=== PATIENT | female | born 1940 | race Caucasian/White ===

== ENCOUNTER 2017-09-26 13:45 | Inpatient (IN) | payer OTHER ==
[2017-09-26] MEDS ORDERED: Sodium Chloride 0.9% 10 ML Syringe FLUSH PRN (14:24)
[2017-09-26] MEDS ORDERED: Sodium Chloride 0.9% 1,000 ML IV SCH (14:30)
[2017-09-26 14:59] LABS: ACETAMINOPHEN 0 ug/mL (10-30)
--- NOTE | 2017-09-26 15:06 | EDM.PDOCBH ---
ED HPI GENERAL MEDICAL PROBLEM - General Chief Complaint: Drug or Alcohol Abuse Stated Complaint: [facility] Time Seen by Provider: 09/26/17 13:52 Source of Information: Reports: Patient, Family History Limitations: Reports: No Limitations - History of Present Illness INITIAL COMMENTS - FREE TEXT/NARRATIVE: Patient is a 76-year-old female who presents to the ED via ambulance after attempting to killing herself. Patient states she took 90 mg of hydrocodone at 7 :00 this morning. She took another 24 mg of hydrocodone at 1:00 this afternoon. She wants to end her life. She wants to be with Tino her Savior. Patient admits to doing some research on the Internet on how to kill herself and how much hydrocodone to take. She states 90 mg was the suggested dose to be lethal. Since this did not work patient opted to take four more tabs at 1 pm this afternoon. She has attempted to kill herself in the past requiring inpatient mental health evaluation. The pills she took were hydrocodone/ibuprofen 7.5 mg/ 200 mg. Patient has a history of hemochromatosis and hypothyroidism. Only medication she is currently on is levothyroxine. Otherwise she is on a multitude of supplements for various conditions. Surgical history: Cholecystectomy. Patient reports she does not smoke, utilize alcohol, or recreational drugs Patient received 84 tabs of hydrocodone 7.5 mg/200 mg of ibuprofen on September 20, 2017. Patient normally takes half tab 6 times a day. Thus over the past 18 days patient should have only used 18 tabs. Patient only has 27 tabs left. Patient has taken an extra 39 tabs. - Related Data Allergies Allergy/AdvReac Type Severity Reaction Status Date / Time No Known Allergies Allergy Verified 09/26/17 13:53 Home Meds: Home Meds Amino Acids [Amino Acid] 1 each PO DAILY 09/26/17 [History] Ascorbic Acid [C-1000] 1,000 mg PO DAILY 09/26/17 [History] Calcium Carbonate/Vitamin D3 [Calcium Carbonate/Vitamin D 1250 MG-200 Unit] 1 tab PO BIDMEALS 09/26/17 [History] Cholecalciferol (Vitamin D3) [Vitamin D3] 10,000 unit PO DAILY 09/26/17 [History ] Digestive 8/L.acidoph/Pectin [Digestive Enzymes Tablet] 1 each PO DAILY [History] [place] 150 mg PO DAILY 09/26/17 [History] Levothyroxine Sodium [Synthroid] 100 mcg PO ACBREAKFAST 09/26/17 [History] Magnesium 200 mg PO DAILY 09/26/17 [History] Milk Thistle 1 gm MC DAILY 09/26/17 [History] Polyvinyl Alcohol/Povidone/Pf [Refresh Classic Eye Drops] 1 drop DAILY 09/26/17 [History] Potassium Citrate [Potassium Citrate ER] 5 meq PO DAILY 09/26/17 [History] Selenium 200 mcg PO DAILY 09/26/17 [History] Vit A/Vit C/Vit E/Zinc/Copper [Preservision] 1 each PO DAILY 09/26/17 [History] Vitamin B Complex [B Complex] 1 each PO DAILY 09/26/17 [History] Vitamin E Acetate [Vitamin E] 200 unit PO DAILY 09/26/17 [History] Zinc 22.5 mg PO DAILY 09/26/17 [History] Past Medical History HEENT History: Reports: Hard of Hearing, Impaired 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: Musculoskeletal History: Reports: Osteoarthritis Endocrine/Metabolic History: Reports: Hypothyroidism Oncologic (Cancer) History: Reports: Breast, Other (See Below) Other Oncologic History: left breast cancer--pt states that this is self diagnosed - Infectious Disease History Infectious Disease History: Reports: Chicken Pox, Measles, Mumps - Past Surgical History GI Surgical History: Reports: Cholecystectomy Female Surgical History: Reports: Hysterectomy, Oophorectomy Social & Family History - Tobacco Use Smoking Status *Q: Never Smoker - Caffeine Use Caffeine Use: Reports: None - Recreational Drug Use Recreational Drug Use: No ED ROS GENERAL - Review of Systems Review Of Systems: See Below HEENT: Reports: Other (Dry eyes) Respiratory: Denies: Shortness of Breath, Wheezing, Cough, Sputum Cardiovascular: Denies: Chest Pain, Dyspnea on Exertion, Palpitations GI/Abdominal: Reports: Diarrhea (Intermittent). Denies: Abdominal Pain, Constipation, Nausea, Vomiting : Reports: No Symptoms Musculoskeletal: Reports: No Symptoms Neurological: Reports: No Symptoms Psychiatric: Denies: Hallucinations, Homicidal Ideation, Suicidal Ideation ED EXAM, BEHAVIORAL HEALTH - Physical Exam Exam: See Below Exam Limited By: No Limitations General Appearance: Alert, WD/WN, No Apparent Distress Ears: Hearing Grossly Normal Nose: Normal Inspection Throat/Mouth: Normal Voice, No Airway Compromise Neck: Normal Inspection, Supple Respiratory/Chest: No Respiratory Distress, Lungs Clear, Normal Breath Sounds, No Accessory Muscle Use, Chest Non-Tender Cardiovascular: Normal Peripheral Pulses, Regular Rate, Rhythm GI/Abdominal: Normal Bowel Sounds, Soft, Non-Tender, No Organomegaly, No Distention Back Exam: Normal Inspection Extremities: Normal Inspection Neurological: Alert, Normal Mood/Affect, CN II-XII Intact, Normal Cognition, No Motor/Sensory Deficits, Oriented x 3 Psychiatric: Alert, Normal Affect, Normal Cognition, Normal Mood, Oriented Skin Exam: Warm, Dry, Intact, Normal color COURSE, BEHAVIORAL HEALTH COMP - Course Vital Signs: Last Vital Signs Temp 97.6 F 09/26/17 22:16 Pulse 60 09/26/17 22:16 Resp 16 09/26/17 22:16 BP 140/87 09/26/17 22:16 Pulse Ox 97 09/26/17 22:16 Orders, Labs, Meds: Active Orders 24 hr Category Date Time Status Admission Status [Patient Status] [ADT] Routine ADT 09/26/17 21:15 Ordered Antiembolic Devices [RC] PER UNIT ROUTINE Care 09/26/17 21:12 Active Cardiac Monitoring [RC] . DIRECTED Care 09/26/17 22:52 Ordered Cardiac Monitoring [RC] . DIRECTED Care 09/26/17 22:55 Ordered Cardiac Monitoring [RC] CONTINUOUS Care 09/26/17 21:11 Active Height and Weight [RC] DAILY Care 09/26/17 21:10 Active Intake and Output [RC] QSHIFT Care 09/26/17 21:11 Active Oxygen Therapy [RC] PRN Care 09/26/17 21:10 Active Peripheral IV Care [RC] . DIRECTED Care 09/26/17 14:25 Active RT Aerosol Therapy [RC] ASDIRECTED Care 09/26/17 21:12 Active Up With Assistance [RC] ASDIRECTED Care 09/26/17 21:10 Active Up ad Nova [RC] ASDIRECTED Care 09/26/17 21:10 Active VTE/DVT Education [RC] PER UNIT ROUTINE Care 09/26/17 21:10 Active Vital Signs [RC] Q4H Care 09/26/17 21:10 Active Consult to Case Management [CONS] Routine Cons 09/26/17 21:10 Active Consult to Tablet Making Machine Operator [CONS] Routine Cons 09/26/17 21:10 Active Consult to Spiritual Care [CONS] Routine Cons 09/26/17 21:10 Active Regular Diet [DIET] Diet 09/26/17 Dinner Active BASIC METABOLIC PANEL,BMP [CHEM] AM Lab 09/27/17 05:11 Ordered CBC WITH AUTO DIFF [HEME] AM Lab 09/27/17 05:11 Ordered MAGNESIUM [CHEM] AM Lab 09/27/17 05:11 Ordered Acetaminophen [Tylenol] Med 09/26/17 21:10 Active 650 mg PO Q4H PRN Acetaminophen/HYDROcodone [[place] 325-5 MG] Med 09/26/17 21:10 Active 1 tab PO Q4H PRN Albuterol/Ipratropium [DuoNeb 3.0-0.5 MG/3 ML] Med 09/26/17 21:10 Active 3 ml NEB Q4H PRN Bisacodyl [Dulcolax] Med 09/26/17 21:10 Active 5 mg PO DAILY PRN Docusate Sodium [Colace] Med 09/26/17 21:10 Active 100 mg PO BID PRN Docusate Sodium/Sennosides [Senna Plus] Med 09/26/17 21:10 Active 1 tab PO BID PRN HYDROmorphone [Dilaudid] Med 09/26/17 21:10 Active 0.25 mg IVPUSH Q2H PRN LORazepam [Ativan] Med 09/26/17 21:13 Active 0.5 mg IVPUSH Q4H PRN LORazepam [Ativan] Med 09/26/17 21:13 Active 2 mg IVPUSH Q4H PRN Magnesium Rep Pharmacy to Dose [Pharmacy to Dose - Med 09/26/17 21:15 Pending Magnesium Replacement] 1 dose .XX ASDIRECTED Metoprolol Tartrate [Lopressor] Med 09/26/17 21:13 Active 5 mg IVPUSH Q4H PRN Ondansetron [Zofran] Med 09/26/17 21:10 Active 4 mg IV Q6H PRN Pantoprazole [ProTONIX IV] Med 09/26/17 21:10 Pending 40 mg .XX ONETIME ONE Pantoprazole [ProTONIX IV] Med 09/26/17 22:55 Once 40 mg IVPUSH ONETIME ONE Polyethylene Glycol 3350 [MiraLAX] Med 09/26/17 21:10 Active 17 gm PO DAILY PRN Potassium Rep Pharmacy to Dose [Pharmacy to Dose - Med 09/26/17 21:15 Pending Potassium Replacement] 1 dose .XX ASDIRECTED Promethazine [Phenergan] 12.5 mg Med 09/26/17 21:10 Active Sodium Chloride 0.9% [Normal Saline] 50 ml IV Q6H Sodium Chloride 0.9% [Normal Saline] 1,000 ml Med 09/26/17 14:30 Active IV ASDIRECTED Sodium Chloride 0.9% [Saline Flush] Med 09/26/17 14:24 Active 10 ml FLUSH ASDIRECTED PRN Temazepam [Restoril] Med 09/26/17 21:10 Active 7.5 mg PO BEDTIME PRN hydrALAZINE [Apresoline] Med 09/26/17 21:13 Active 10 mg IVPUSH Q4H PRN Peripheral IV Insertion Adult [OM.PC] Stat Oth 09/26/17 14:25 Ordered Sequential Compression Device [OM.PC] Per Unit Routine Oth 09/26/17 21:11 Ordered Resuscitation Status Routine Resus Stat 09/26/17 21:10 Ordered Medication Orders Acetaminophen (Tylenol) 650 mg PO Q4H PRN PRN Reason: Pain (Mild 1-3)/fever Hydrocodone Bitart/Acetaminophen ([place] 325-5 Mg) 1 tab PO Q4H PRN PRN Reason: Pain (moderate 4-6) Albuterol/Ipratropium (Duoneb 3.0-0.5 Mg/3 Ml) 3 ml NEB Q4H PRN PRN Reason: Shortness Of Breath/wheezing Bisacodyl (Dulcolax) 5 mg PO DAILY PRN PRN Reason: Constipation Docusate Sodium (Colace) 100 mg PO BID PRN PRN Reason: Constipation Hydralazine HCl (Apresoline) 10 mg IVPUSH Q4H PRN PRN Reason: Hypertension Hydromorphone HCl (Dilaudid) 0.25 mg IVPUSH Q2H PRN PRN Reason: Pain (severe 7-10) Sodium Chloride (Normal Saline) 1,000 mls @ 100 mls/hr IV ASDIRECTED ALEKSANDAR Last Admin: 09/26/17 15:08 Dose: 250 mls/hr Promethazine HCl 12.5 mg/ (Sodium Chloride) 50.5 mls @ 100 mls/hr IV Q6H PRN PRN Reason: Nausea/Vomiting Lorazepam (Ativan) 2 mg IVPUSH Q4H PRN PRN Reason: Seizures Lorazepam (Ativan) 0.5 mg IVPUSH Q4H PRN PRN Reason: Anxiety Magnesium Sulfate (Pharmacy To Dose - Magnesium Replacement) 1 dose .XX ASDIRECTED [facility] Metoprolol Tartrate (Lopressor) 5 mg IVPUSH Q4H PRN PRN Reason: Tachycardia Ondansetron HCl (Zofran) 4 mg IV Q6H PRN PRN Reason: Nausea/Vomiting Pantoprazole Sodium (Protonix Iv) 40 mg .XX ONETIME ONE Stop: 09/26/17 21:11 Pantoprazole Sodium (Protonix Iv) 40 mg IVPUSH ONETIME ONE Stop: 09/26/17 22:56 Polyethylene Glycol (Miralax) 17 gm PO DAILY PRN PRN Reason: Constipation Potassium Chloride (Pharmacy To Dose - Potassium Replacement) 1 dose .XX ASDIRECTED [facility] Senna/Docusate Sodium (Senna Plus) 1 tab PO BID PRN PRN Reason: Constipation Sodium Chloride (Saline Flush) 10 ml FLUSH ASDIRECTED PRN PRN Reason: Keep Vein Open Last Admin: 09/26/17 15:09 Dose: 10 ml Temazepam (Restoril) 7.5 mg PO BEDTIME PRN PRN Reason: Sleep Laboratory Tests 09/26/17 09/26/17 09/26/17 Range/Units 13:50 13:50 13:50 WBC 7.10 (3.98-10.04) K/mm3 RBC 4.79 (3.98-5.22) M/mm3 Hgb 15.6 (11.2-15.7) gm/L Hct 45.5 H (34.1-44.9) % MCV 95.0 H (79.4-94.8) fl MCH 32.6 H (25.6-32.2) pg MCHC 34.3 (32.2-35.5) g/dl RDW Std Deviation 40.6 (36.4-46.3) fL Plt Count 143 L (182-369) K/mm3 MPV 10.5 (9.4-12.3) fl Neut % (Auto) 56.6 (34.0-71.1) % Lymph % (Auto) 33.8 (19.3-51.7) % [place] % (Auto) 7.9 (4.7-12.5) % Eos % (Auto) 1.3 (0.7-5.8) Baso % (Auto) 0.3 (0.1-1.2) % Neut # (Auto) 4.02 (1.56-6.13) K/mm3 Lymph # (Auto) 2.40 (1.18-3.74) K/mm3 [place] # (Auto) 0.56 H (0.24-0.36) K/mm3 Eos # (Auto) 0.09 (0.04-0.36) K/mm3 Baso # (Auto) 0.02 (0.01-0.08) K/mm3 PT 9.8 (8.0-13.0) SECONDS INR 0.90 Sodium 142 (136-145) mEq/L Potassium 3.9 (3.5-5.1) mEq/L Chloride 105 (98-107) mEq/L Carbon Dioxide 26 (21-32) mEq/L Anion Gap 14.9 (5-15) BUN 18 (7-18) mg/dL Creatinine 0.8 (0.55-1.02) mg/dL Est Cr Clr Drug Dosing 51.66 mL/min Estimated GFR (MDRD) > 60 (>60) mL/min BUN/Creatinine Ratio 22.5 H (14-18) Glucose 101 (83-115) mg/dL Calcium 10.0 (8.5-10.1) mg/dL Total Bilirubin 0.3 (0.2-1.0) mg/dL AST 29 (15-37) U/L ALT 37 (14-59) U/L Alkaline Phosphatase 49 (46-116) U/L Total Protein 7.6 (6.4-8.2) g/dl Albumin 4.0 (3.4-5.0) g/dl Globulin 3.6 gm/dL Albumin/Globulin Ratio 1.1 (1-2) TSH 3rd Generation 12.263 H (0.358-3.74) uIU/mL Urine Color (Yellow) Urine Appearance (Clear) Urine pH (5.0-8.0) Ur Specific [place] (1.005-1.030) Urine Protein (Negative) Urine Glucose (UA) (Negative) Urine Ketones (Negative) Urine Occult Blood (Negative) Urine Nitrite (Negative) Urine Bilirubin (Negative) Urine Urobilinogen (0.2-1.0) Ur Leukocyte Esterase (Negative) Urine RBC (0-5) /hpf Urine WBC (0-5) /hpf Ur Epithelial Cells (0-5) /hpf Urine Bacteria (FEW) /hpf Urine Mucus (FEW) /hpf Salicylates (2.8-20) mg/dL Urine Opiates Screen (NEGATIVE) Ur Buprenorphine Scrn (NEGATIVE) Ur Oxycodone Screen (NEGATIVE) Urine Methadone Screen (NEGATIVE) Ur Propoxyphene Screen (NEGATIVE) Acetaminophen 0 L (10-30) ug/mL Ur Barbiturates Screen (NEGATIVE) Ur Tricyclics Screen (NEGATIVE) Ur Phencyclidine Scrn (NEGATIVE) Ur Amphetamine Screen (NEGATIVE) U Methamphetamines Scrn (NEGATIVE) U Benzodiazepines Scrn (NEGATIVE) U Cocaine Metab Screen (NEGATIVE) U Marijuana (THC) Screen (NEGATIVE) Ethyl Alcohol 0.00 (0.00) gm% 09/26/17 09/26/17 09/26/17 Range/Units 13:50 14:48 14:48 WBC (3.98-10.04) K/mm3 RBC (3.98-5.22) M/mm3 Hgb (11.2-15.7) gm/L Hct (34.1-44.9) % MCV (79.4-94.8) fl MCH (25.6-32.2) pg MCHC (32.2-35.5) g/dl RDW Std Deviation (36.4-46.3) fL Plt Count (182-369) K/mm3 MPV (9.4-12.3) fl Neut % (Auto) (34.0-71.1) % Lymph % (Auto) (19.3-51.7) % [place] % (Auto) (4.7-12.5) % Eos % (Auto) (0.7-5.8) Baso % (Auto) (0.1-1.2) % Neut # (Auto) (1.56-6.13) K/mm3 Lymph # (Auto) (1.18-3.74) K/mm3 [place] # (Auto) (0.24-0.36) K/mm3 Eos # (Auto) (0.04-0.36) K/mm3 Baso # (Auto) (0.01-0.08) K/mm3 PT (8.0-13.0) SECONDS INR Sodium (136-145) mEq/L Potassium (3.5-5.1) mEq/L Chloride (98-107) mEq/L Carbon Dioxide (21-32) mEq/L Anion Gap (5-15) BUN (7-18) mg/dL Creatinine (0.55-1.02) mg/dL Est Cr Clr Drug Dosing mL/min Estimated GFR (MDRD) (>60) mL/min BUN/Creatinine Ratio (14-18) Glucose (83-115) mg/dL Calcium (8.5-10.1) mg/dL Total Bilirubin (0.2-1.0) mg/dL AST (15-37) U/L ALT (14-59) U/L Alkaline Phosphatase (46-116) U/L Total Protein (6.4-8.2) g/dl Albumin (3.4-5.0) g/dl Globulin gm/dL Albumin/Globulin Ratio (1-2) TSH 3rd Generation (0.358-3.74) uIU/mL Urine Color Yellow (Yellow) Urine Appearance Clear (Clear) Urine pH 6.5 (5.0-8.0) Ur Specific [place] 1.015 (1.005-1.030) Urine Protein Negative (Negative) Urine Glucose (UA) Negative (Negative) Urine Ketones Negative (Negative) Urine Occult Blood Negative (Negative) Urine Nitrite Negative (Negative) Urine Bilirubin Negative (Negative) Urine Urobilinogen 0.2 (0.2-1.0) Ur Leukocyte Esterase Trace H (Negative) Urine RBC 0-5 (0-5) /hpf Urine WBC 0-5 (0-5) /hpf Ur Epithelial Cells 0-5 (0-5) /hpf Urine Bacteria Not seen (FEW) /hpf Urine Mucus Not seen (FEW) /hpf Salicylates 1.6 L (2.8-20) mg/dL Urine Opiates Screen Presumptive positive H (NEGATIVE) Ur Buprenorphine Scrn Negative (NEGATIVE) Ur Oxycodone Screen Negative (NEGATIVE) Urine Methadone Screen Negative (NEGATIVE) Ur Propoxyphene Screen Negative (NEGATIVE) Acetaminophen (10-30) ug/mL Ur Barbiturates Screen Negative (NEGATIVE) Ur Tricyclics Screen Negative (NEGATIVE) Ur Phencyclidine Scrn Negative (NEGATIVE) Ur Amphetamine Screen Negative (NEGATIVE) U Methamphetamines Scrn Negative (NEGATIVE) U Benzodiazepines Scrn Negative (NEGATIVE) U Cocaine Metab Screen Negative (NEGATIVE) U Marijuana (THC) Screen Negative (NEGATIVE) Ethyl Alcohol (0.00) gm% Medications Generic Name Dose Route Start Last Admin Trade Name Freq PRN Reason Stop Dose Admin Acetaminophen 650 mg 09/26/17 21:10 Tylenol PO Q4H PRN Pain (Mild 1-3)/fever Hydrocodone Bitart/Acetaminophen 1 tab 09/26/17 21:10 [place] 325-5 Mg PO Q4H PRN Pain (moderate 4-6) Albuterol/Ipratropium 3 ml 09/26/17 21:10 Duoneb 3.0-0.5 Mg/3 Ml NEB Q4H PRN Shortness Of Breath/wheezing Bisacodyl 5 mg 09/26/17 21:10 Dulcolax PO DAILY PRN Constipation Docusate Sodium 100 mg 09/26/17 21:10 Colace PO BID PRN Constipation Hydralazine HCl 10 mg 09/26/17 21:13 Apresoline IVPUSH Q4H PRN Hypertension Hydromorphone HCl 0.25 mg 09/26/17 21:10 Dilaudid IVPUSH Q2H PRN Pain (severe 7-10) Sodium Chloride 1,000 mls @ 100 mls/hr 09/26/17 14:30 09/26/17 15:08 Normal Saline IV 250 mls/hr ASDIRECTED [facility] Administration Promethazine HCl 12.5 mg/ 50.5 mls @ 100 mls/hr 09/26/17 21:10 Sodium Chloride IV Q6H PRN Nausea/Vomiting Lorazepam 2 mg 09/26/17 21:13 Ativan IVPUSH Q4H PRN Seizures Lorazepam 0.5 mg 09/26/17 21:13 Ativan IVPUSH Q4H PRN Anxiety Magnesium Sulfate 1 dose 09/26/17 21:15 Pharmacy To Dose - Magnesium Replacement .XX ASDIRECTED [facility] Metoprolol Tartrate 5 mg 09/26/17 21:13 Lopressor IVPUSH Q4H PRN Tachycardia Ondansetron HCl 4 mg 09/26/17 21:10 Zofran IV Q6H PRN Nausea/Vomiting Pantoprazole Sodium 40 mg 09/26/17 21:10 Protonix Iv .XX 09/26/17 21:11 ONETIME ONE Pantoprazole Sodium 40 mg 09/26/17 22:55 Protonix Iv IVPUSH 09/26/17 22:56 ONETIME ONE Polyethylene Glycol 17 gm 09/26/17 21:10 Miralax PO DAILY PRN Constipation Potassium Chloride 1 dose 09/26/17 21:15 Pharmacy To Dose - Potassium Replacement .XX ASDIRECTED ALEKSANDAR Senna/Docusate Sodium 1 tab 09/26/17 21:10 Senna Plus PO BID PRN Constipation Sodium Chloride 10 ml 09/26/17 14:24 09/26/17 15:09 Saline Flush FLUSH 10 ml ASDIRECTED PRN Administration Keep Vein Open Temazepam 7.5 mg 09/26/17 21:10 Restoril PO BEDTIME PRN Sleep Re-Assessment/Re-Exam: IV established with NS 250mls/hr for kidney protection with taking excessive amounts of ibuprofen. ibupro Initial labs and studies include CBC, chem 14, urine drug tox, serum EtOH, PT/ INR, salicylate, acetaminophen, TSH, UA, and EKG. EKG sinus bradycardia at a rate of 58 with no acute changes noted. Labs reviewed:CBC and C14 essentially normal. TSH: 12.263 UA: negative for infection. Urine Drug Tox: Salicylates 1.6L, Opiates positive, Acetaminophen 0, Serum ETOH 0.00. 1606 [facility] Contacted may have a Geriatric Psych Bed available in a hr. 1617 [facility] has called back no Geriatric Psych Beds available. 1622 Called [facility]so Jonas, no geriatric Psych Beds available. [address] Cavazos. Requests geriatric social work professor come evaluate the patient to determine placement. 165 Adriana calles has attempted to contact all individuals software developer consultant list with no answers. 1650 Attempting to find placement for the patient. Will look at Nirmal, Daisha, and Nicola. 1904 Amita with [facility]: [facility] has completed assessment and spoken with Dr. Steph Petersen Psych Provider. He does not feel safe having the patient transferred this evening to [place]. Request patient be admitted to the hospitalist and monitored for any changes. If stable in the morning may be transferred to [place] for psych evaluation. Contacted Dr. Cavazos and he has agreed to admit. Requests ICU admission with one on one. Patient remained stable throughout her ED visit. Vital signs have been stable. MCG completed. Admission orders placed. Departure - Departure Time of Disposition: 21:15 Disposition: Admitted As Inpatient 66 Condition: Good Clinical Impression: Elevated TSH Suicide attempt using analgesics Qualifiers: Encounter type: initial encounter Qualified Code(s): T39.92XA - Poisoning by unspecified nonopioid analgesic, antipyretic and antirheumatic, intentional self -harm, initial encounter - Discharge Information Referrals: Aleksandr Stephen MD [Primary Care Provider] - - My Orders Last 24 Hours: My Active Orders 09/26/17 14:24 Sodium Chloride 0.9% [Saline Flush] 10 ml FLUSH ASDIRECTED PRN 09/26/17 14:25 Peripheral IV Care [RC] . DIRECTED Peripheral IV Insertion Adult [OM.PC] Stat 09/26/17 14:30 Sodium Chloride 0.9% [Normal Saline] 1,000 ml IV ASDIRECTED 09/26/17 21:15 Admission Status [Patient Status] [ADT] Routine 09/26/17 22:52 Cardiac Monitoring [RC] . DIRECTED 09/26/17 22:55 Cardiac Monitoring [RC] . DIRECTED - Assessment/Plan Last 24 Hours: My Active Orders 09/26/17 14:24 Sodium Chloride 0.9% [Saline Flush] 10 ml FLUSH ASDIRECTED PRN 09/26/17 14:25 Peripheral IV Care [RC] . DIRECTED Peripheral IV Insertion Adult [OM.PC] Stat 09/26/17 14:30 Sodium Chloride 0.9% [Normal Saline] 1,000 ml IV ASDIRECTED 09/26/17 21:15 Admission Status [Patient Status] [ADT] Routine 09/26/17 22:52 Cardiac Monitoring [RC] . DIRECTED 09/26/17 22:55 Cardiac Monitoring [RC] . DIRECTED
[2017-09-26] MEDS ORDERED: HYDROmorphone 0.5 MG/0.5 ML Syringe IVPUSH PRN (21:10)
[2017-09-26] MEDS ORDERED: Docusate Sodium 100 MG Cap PO PRN (21:10)
[2017-09-26] MEDS ORDERED: Acetaminophen 325 MG Tab PO PRN (21:10)
[2017-09-26] MEDS ORDERED: Albuterol/Ipratropium 3.0-0.5 MG/3 ML Neb Soln NEB PRN (21:10)
[2017-09-26] MEDS ORDERED: Acetaminophen/HYDROcodone 325-5 MG Tab PO PRN (21:10)
[2017-09-26] MEDS ORDERED: Pantoprazole 40 MG Vial ONE (21:10)
[2017-09-26] MEDS ORDERED: Polyethylene Glycol 3350 Powder 17 GM Packet PO PRN (21:10)
[2017-09-26] MEDS ORDERED: Bisacodyl 5 MG Tab PO PRN (21:10)
[2017-09-26] MEDS ORDERED: Temazepam 7.5 MG Cap PO PRN (21:10)
[2017-09-26] MEDS ORDERED: Ondansetron 4 MG/2 ML SDV IV PRN (21:10)
[2017-09-26] MEDS ORDERED: Promethazine 12.5 MG in Sodium Chloride 0.9% 50 ML IV PRN (21:10)
[2017-09-26] MEDS ORDERED: LORazepam 2 MG/ML MDV IVPUSH PRN ×2 (21:13)
[2017-09-26] MEDS ORDERED: hydrALAZINE 20 MG/ML SDV IVPUSH PRN (21:13)
[2017-09-26] MEDS ORDERED: Metoprolol Tartrate 5 MG/5 ML SDV IVPUSH PRN (21:13)
[2017-09-26] MEDS ORDERED: Pantoprazole 40 MG Vial IVPUSH ONE (22:55)
--- NOTE | 2017-09-26 23:00 | PCM.HP ---
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 She is "tired of living". She states, "I'm poor, lonely, not able to get around and miserable". She also states that she want to get to the spiritual world to meet up with Tino. Patient is a believer of naturopathic medicine. She states that she has cured her OA, hematochromatosis, breast cancer and other things (i.e. illness). She is a divorcee, lives alone and under [employer] program. She has tried multiple online regimen to improve her overall health from DHEA to improve her hormonal insufficiency, to Calcium Gluconate for reduction of excess estrogen, ? Pancreatinin to treat her cancer cells, and Milk Thisle for pruritis from hematochromatosis. Patient denies any hx/o anxiety or depression. She has had counseling in the past was never formally diagnosed with certain psychiatric illness. Her initial workup in the emergency department shows an unremarkable CBC and coagulation study. Her chemistry is remarkable for TSH of 12.2. Her urine is negative for urinary tract infection. Patient is being admitted for observation related to suicide attempt via drug overdose. She is DNR/DNI. She has been accepted under the services of Dr. Choi , Attending Psychiatrist. She will be transferred tomorrow in [place]. - Related Data Allergies/Adverse Reactions: Allergies Allergy/AdvReac Type Severity Reaction Status Date / Time No Known Allergies Allergy Verified 09/26/17 13:53 Home Medications: Home Meds Amino Acids [Amino Acid] 1 each PO DAILY 09/26/17 [History] Ascorbic Acid [C-1000] 1,000 mg PO DAILY 09/26/17 [History] Calcium Carbonate/Vitamin D3 [Calcium Carbonate/Vitamin D 1250 MG-200 Unit] 1 tab PO BIDMEALS 09/26/17 [History] Cholecalciferol (Vitamin D3) [Vitamin D3] 10,000 unit PO DAILY 09/26/17 [History ] Digestive 8/L.acidoph/Pectin [Digestive Enzymes Tablet] 1 each PO DAILY [History] [place] 150 mg PO DAILY 09/26/17 [History] Levothyroxine Sodium [Synthroid] 100 mcg PO ACBREAKFAST 09/26/17 [History] Magnesium 200 mg PO DAILY 09/26/17 [History] Milk Thistle 1 gm MC DAILY 09/26/17 [History] Polyvinyl Alcohol/Povidone/Pf [Refresh Classic Eye Drops] 1 drop DAILY 09/26/17 [History] Potassium Citrate [Potassium Citrate ER] 5 meq PO DAILY 09/26/17 [History] Selenium 200 mcg PO DAILY 09/26/17 [History] Vit A/Vit C/Vit E/Zinc/Copper [Preservision] 1 each PO DAILY 09/26/17 [History] Vitamin B Complex [B Complex] 1 each PO DAILY 09/26/17 [History] Vitamin E Acetate [Vitamin E] 200 unit PO DAILY 09/26/17 [History] Zinc 22.5 mg PO DAILY 09/26/17 [History] Past Medical History HEENT History: Reports: Hard of Hearing, Impaired Vision Respiratory History: Reports: Asthma Gastrointestinal History: Reports: None Genitourinary History: Reports: None 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 RIDER History: Reports: , Prolapsed Uterus Musculoskeletal History: Reports: Osteoarthritis Endocrine/Metabolic History: Reports: Hypothyroidism Oncologic (Cancer) History: Reports: Breast, Other (See Below) Other Oncologic History: left breast cancer--pt states that this is self diagnosed - Infectious Disease History Infectious Disease History: Reports: Chicken Pox, Measles, Mumps - Past Surgical History HEENT Surgical History: Reports: Cataract Surgery Respiratory Surgical History: Reports: None GI Surgical History: Reports: Cholecystectomy, Colonoscopy Female Surgical History: Reports: Hysterectomy, Oophorectomy Musculoskeletal Surgical History: Reports: Other (See Below) Other Musculoskeletal Surgeries/Procedures:: left harry fx. Dermatological Surgical History: Reports: None Social & Family History - Family History Oncologic: Reports: Bone, Lymphoma, Prostate - Tobacco Use Smoking Status *Q: Never Smoker Second Hand Smoke Exposure: No - Caffeine Use Caffeine Use: Reports: None - Recreational Drug Use Recreational Drug Use: No H&P Review of Systems - Review of Systems: Review Of Systems: See Below General: Reports: Fatigue. Denies: Fever, Chills, Malaise, Weakness HEENT: Reports: No Symptoms, Other (dry eyes) Pulmonary: Reports: No Symptoms Cardiovascular: Denies: Chest Pain, Palpitations, Dyspnea on Exertion, Lightheadedness Gastrointestinal: Reports: Diarrhea (on and off). Denies: Abdominal Pain, Constipation, Nausea, Vomiting Genitourinary: Reports: No Symptoms Musculoskeletal: Reports: Other (All over from neck all the way to her lower legs bilaterally) Skin: Denies: Cyanosis, Pallor, Diaphoresis, Rash, Erythema, Wound Psychiatric: Denies: Depression, Anxiety, Agitation, Hallucinations, Suicidal Ideation Neurological: Denies: Confusion, Difficulty Walking, Weakness, Gait Disturbance Hematologic/Lymphatic: Reports: No Symptoms Immunologic: Reports: No Symptoms Exam - Exam Exam: See Below - Vital Signs Vital Signs: Last Vital Signs Temp 36.4 C 09/26/17 22:16 Pulse 60 09/26/17 22:16 Resp 16 09/26/17 22:16 BP 140/87 09/26/17 22:16 Pulse Ox 97 09/26/17 22:16 Weight: 68.356 kg - Exam General: Alert, Oriented, Cooperative, Mild Distress HEENT: Conjunctiva Clear, EACs Clear, Hearing Intact, Nares Patent, Normal Nasal Septum, Posterior Pharynx Clear, Other (Halitosis), PERRLA. No: Mucosa Moist & [place] Neck: Supple, Trachea Midline, +2 Carotid Pulse wo Bruit Lungs: Clear to Auscultation, Normal Respiratory Effort Cardiovascular: Regular Rate, Regular Rhythm GI/Abdominal Exam: Normal Bowel Sounds, Soft, Non-Tender, No Organomegaly, No Distention, No Abnormal Bruit (Female) Exam: Deferred Rectal (Female) Exam: Deferred Back Exam: Normal Inspection, Decreased Range of Motion, Vertebral Tenderness Extremities: Normal Inspection, Normal Range of Motion, Non-Tender, No Pedal Edema, Normal Capillary Refill Peripheral Pulses: 2+: Posterior Tibial (L), Posterior Tibial (R), Dorsalis Pedis (L), Dorsalis Pedis (R) Skin: Warm, Dry, Intact. No: Petechia, Ecchymosis Neuro Extensive - Mental Status: Oriented x3, Normal Cognition, Memory Intact Neuro Extensive - Motor, Sensory, Reflexes: CN II-XII Intact, Normal Gait Psychiatric: Alert, Depressed, Suicidal Ideation. No: Homicidal Ideation, Hallucinations, Withdrawal Symptoms - Patient Data Result Diagrams: 09/27/17 06:07 09/27/17 06:07 *Q Meaningful Use (ADM) - VTE *Q VTE Criteria *Q: - Stroke *Q Stroke Criteria *Q: - AMI *Q AMI Criteria *Q: Problem List Initiated/Reviewed/Updated: Yes Orders Last 24hrs: Active Orders 24 hr Category Date Time Status Antiembolic Devices [RC] PER UNIT ROUTINE Care 09/26/17 21:12 Active Cardiac Monitoring [RC] CONTINUOUS Care 09/26/17 21:11 Active Height and Weight [RC] DAILY Care 09/26/17 21:10 Active Intake and Output [RC] QSHIFT Care 09/26/17 21:11 Active Oxygen Therapy [RC] PRN Care 09/26/17 21:10 Active RT Aerosol Therapy [RC] ASDIRECTED Care 09/26/17 21:12 Active Up With Assistance [RC] ASDIRECTED Care 09/26/17 21:10 Active Up ad Nova [RC] ASDIRECTED Care 09/26/17 21:10 Active VTE/DVT Education [RC] PER UNIT ROUTINE Care 09/26/17 21:10 Active Vital Signs [RC] Q4H Care 09/26/17 21:10 Active Consult to Case Management [CONS] Routine Cons 09/26/17 21:10 Active Consult to Quarrying Specialist [CONS] Routine Cons 09/26/17 21:10 Active Consult to Spiritual Care [CONS] Routine Cons 09/26/17 21:10 Active Regular Diet [DIET] Diet 09/26/17 Dinner Active BASIC METABOLIC PANEL,BMP [CHEM] AM Lab 09/27/17 05:11 Ordered CBC WITH AUTO DIFF [HEME] AM Lab 09/27/17 05:11 Ordered MAGNESIUM [CHEM] AM Lab 09/27/17 05:11 Ordered Acetaminophen [Tylenol] Med 09/26/17 21:10 Active 650 mg PO Q4H PRN Acetaminophen/HYDROcodone [[place] 325-5 MG] Med 09/26/17 21:10 Active 1 tab PO Q4H PRN Albuterol/Ipratropium [DuoNeb 3.0-0.5 MG/3 ML] Med 09/26/17 21:10 Active 3 ml NEB Q4H PRN Bisacodyl [Dulcolax] Med 09/26/17 21:10 Active 5 mg PO DAILY PRN Docusate Sodium [Colace] Med 09/26/17 21:10 Active 100 mg PO BID PRN Docusate Sodium/Sennosides [Senna Plus] Med 09/26/17 21:10 Active 1 tab PO BID PRN HYDROmorphone [Dilaudid] Med 09/26/17 21:10 Active 0.25 mg IVPUSH Q2H PRN LORazepam [Ativan] Med 09/26/17 21:13 Active 0.5 mg IVPUSH Q4H PRN LORazepam [Ativan] Med 09/26/17 21:13 Active 2 mg IVPUSH Q4H PRN Magnesium Rep Pharmacy to Dose [Pharmacy to Dose - Med 09/26/17 21:15 Pending Magnesium Replacement] 1 dose .XX ASDIRECTED Metoprolol Tartrate [Lopressor] Med 09/26/17 21:13 Active 5 mg IVPUSH Q4H PRN Ondansetron [Zofran] Med 09/26/17 21:10 Active 4 mg IV Q6H PRN Pantoprazole [ProTONIX IV] Med 09/26/17 21:10 Pending 40 mg .XX ONETIME ONE Polyethylene Glycol 3350 [MiraLAX] Med 09/26/17 21:10 Active 17 gm PO DAILY PRN Potassium Rep Pharmacy to Dose [Pharmacy to Dose - Med 09/26/17 21:15 Pending Potassium Replacement] 1 dose .XX ASDIRECTED Promethazine [Phenergan] 12.5 mg Med 09/26/17 21:10 Active Sodium Chloride 0.9% [Normal Saline] 50 ml IV Q6H Temazepam [Restoril] Med 09/26/17 21:10 Active 7.5 mg PO BEDTIME PRN hydrALAZINE [Apresoline] Med 09/26/17 21:13 Active 10 mg IVPUSH Q4H PRN Sequential Compression Device [OM.PC] Per Unit Routine Oth 09/26/17 21:11 Ordered Resuscitation Status Routine Resus Stat 09/26/17 21:10 Ordered Medication Orders Acetaminophen (Tylenol) 650 mg PO Q4H PRN PRN Reason: Pain (Mild 1-3)/fever Hydrocodone Bitart/Acetaminophen ([place] 325-5 Mg) 1 tab PO Q4H PRN PRN Reason: Pain (moderate 4-6) Albuterol/Ipratropium (Duoneb 3.0-0.5 Mg/3 Ml) 3 ml NEB Q4H PRN PRN Reason: Shortness Of Breath/wheezing Bisacodyl (Dulcolax) 5 mg PO DAILY PRN PRN Reason: Constipation Docusate Sodium (Colace) 100 mg PO BID PRN PRN Reason: Constipation Hydralazine HCl (Apresoline) 10 mg IVPUSH Q4H PRN PRN Reason: Hypertension Hydromorphone HCl (Dilaudid) 0.25 mg IVPUSH Q2H PRN PRN Reason: Pain (severe 7-10) Sodium Chloride (Normal Saline) 1,000 mls @ 100 mls/hr IV ASDIRECTED [facility] Last Admin: 09/26/17 15:08 Dose: 250 mls/hr Promethazine HCl 12.5 mg/ (Sodium Chloride) 50.5 mls @ 100 mls/hr IV Q6H PRN PRN Reason: Nausea/Vomiting Lorazepam (Ativan) 2 mg IVPUSH Q4H PRN PRN Reason: Seizures Lorazepam (Ativan) 0.5 mg IVPUSH Q4H PRN PRN Reason: Anxiety Magnesium Sulfate (Pharmacy To Dose - Magnesium Replacement) 1 dose .XX ASDIRECTED [facility] Metoprolol Tartrate (Lopressor) 5 mg IVPUSH Q4H PRN PRN Reason: Tachycardia Ondansetron HCl (Zofran) 4 mg IV Q6H PRN PRN Reason: Nausea/Vomiting Pantoprazole Sodium (Protonix Iv) 40 mg .XX ONETIME ONE Stop: 09/26/17 21:11 Polyethylene Glycol (Miralax) 17 gm PO DAILY PRN PRN Reason: Constipation Potassium Chloride (Pharmacy To Dose - Potassium Replacement) 1 dose .XX ASDIRECTED [facility] Senna/Docusate Sodium (Senna Plus) 1 tab PO BID PRN PRN Reason: Constipation Sodium Chloride (Saline Flush) 10 ml FLUSH ASDIRECTED PRN PRN Reason: Keep Vein Open Last Admin: 09/26/17 15:09 Dose: 10 ml Temazepam (Restoril) 7.5 mg PO BEDTIME PRN PRN Reason: Sleep Assessment/Plan Comment:: Assessment/Plan: Acute: Suicide Attempt - Via Drug Overdose with Pain medications; ingestion a good handful of her narcotic pain pills - Risk Factors: Poor overall health, Divorcee (lonely), Financially Poor (no money to pay for her pills), Miserable (chronic pain & not able to get around) - She is under [facility] program - She lives alone but transportation dependent with her 2 sons - She admits to a prior attempt in the past but not very clear how and why. She states [place] the [place], [place]. This was way back in 2001 but could not tell me if she attempted to jump off the erick or burn herself. She tells me at that time, she wanted to spend sometime with God and find serenity - She states "I'm poor, lonely and miserable" - She states she is done here (physical world) and wants to move on to the spiritual world to meet Tino - She is tired of living - Zeus JOHNSON screened her in ED this evening - She was referred to Dr. Choi of [place]; he requested admission for overnight observation and then transfer tomorrow Major Depression - Untreated - She states she was never formally diagnosed - She has multiple risk factors: divorcee, no friends, chronic medical issues (poor vision and hearing), expensive medications, not able to get around - Defer to Psych for further eval and treatment Chronic: Impaired Vision/Hearing OA Hypothyroidism Chronic Pain Syndrome Self Diagnosed Breast Cancer Hot Flash/Hormonal Insufficiency Hx/o Hematochromatosis (self cured with online naturopathic medication) Plan: Admit to ICU High Risk Patient for Suicide/Suicide Precautions 1:1 Care Routine AM Labs Resume All Home Meds per patient request She is a follower of naturopathic medicine SW/CM for d/c planning if available tomorrow Code status: DNR/DNI Transfer to [place] in AM
[2017-09-27] MEDS ORDERED: Levothyroxine 100 MCG Tab PO SCH (06:00)
[2017-09-27] MEDS ORDERED: Calcium Carbonate/Vitamin D3 1500 MG-200 Units Tab PO SCH (07:00)
--- NOTE | 2017-09-27 07:00 | PCM.DCSUM1 ---
Discharge Summary - Hospital Course Brief History: This is a 76 yo elderly white female with past medical hx/o Impaired Vision/Hearing, OA, Hypothyroidism, Chronic Pain Syndrome, Self Diagnosed Breast Cancer, Hot Flash/Hormonal Insufficiency, and Hx/o hematochromatosis (self cured with online naturopathic medications) who presents to ED for evalaution after attempting to harm herself via ingestion of her narcotic pills. She was admitted for observation. - Discharge Data Discharge Date: 09/27/17 Discharge Disposition: DC/Tfer to Other 70 Condition: Good - Discharge Diagnosis/Problem(s) (1) Suicide attempt by drug ingestion SNOMED Code(s): 94201492 ICD Code: T50.902A - POISONING BY UNSP DRUG/MEDS/BIOL SUBST, SELF-HARM, INIT Status: Acute Qualifiers: Encounter type: initial encounter Qualified Code(s): T50.902A - Poisoning by unspecified drugs, medicaments and biological substances, intentional self- harm, initial encounter (2) Depression SNOMED Code(s): 17394009 ICD Code: F32.9 - MAJOR DEPRESSIVE DISORDER, SINGLE EPISODE, UNSPECIFIED Status: Acute Qualifiers: Depression Type: major depressive disorder Major depression recurrence: single episode Active/Remission status: currently active Psychotic features : without psychotic features (3) Hypothyroidism SNOMED Code(s): 10107163 ICD Code: E03.9 - HYPOTHYROIDISM, UNSPECIFIED Status: Chronic Qualifiers: Hypothyroidism type: unspecified Qualified Code(s): E03.9 - Hypothyroidism , unspecified (4) Chronic pain syndrome SNOMED Code(s): 256306158 ICD Code: G89.4 - CHRONIC PAIN SYNDROME Status: Chronic - Patient Summary/Data Operative Procedure(s) Performed: None Complications: None Consults: Consultations 09/26/17 21:10 Consult to Case Management [CONS] Routine Consult to Onion Farmer [CONS] Routine Consult to Spiritual Care [CONS] Routine Labs Pending at D/C: None Recommended Follow-up Testing/Procedures: None Planned Operative Procedure(s) after DC: None Hospital Course: Patient was primarily admitted for attempted suicide via ingestion of narcotic pills. She carried an untreated psychiatric illness that was never addressed in the past. Patient stated "I'm poor, alone and miserable" and that she was wanted to go to the other side to meet up with Tino. She admitted to a past suicide attempt in the past but was not able to provide a clear details of it. While in ED last night, patient was screened by Julien and she was referred to [place] for psychiatric treatment. Dr. Choi accepted him but would like for her to stay for observation. So patient stayed and was placed in the unit with 1:1 care. Overnight, patient had an uneventful night. She did fairly well and reported no acute issues. She was still suicidal however. Patient understood she will be going to inpatient psychiatric facility for further treatment. She was accepted by [facility] this morning for Dr. Pereira, attending Psychiatrist. Patient left the hospital via ground for transportation to [place]. - Patient Instructions Diet: Usual Diet as Tolerated Activity: As Tolerated Driving: Do Not Drive Showering/Bathing: May Shower Notify Provider of: Fever, Increased Pain, Nausea and/or Vomiting Other/Special Instructions: - Transfer to [place] for inpatient psychiatric treatment. - Follow up with your PCP 1 week after dsicharge from [place], [place] - Discharge Plan Home Medications: Home Meds Amino Acids [Amino Acid] 1 each PO DAILY 09/26/17 [History] Ascorbic Acid [C-1000] 1,000 mg PO DAILY 09/26/17 [History] Calcium Carbonate/Vitamin D3 [Calcium Carbonate/Vitamin D 1250 MG-200 Unit] 1 tab PO BIDMEALS 09/26/17 [History] Cholecalciferol (Vitamin D3) [Vitamin D3] 10,000 unit PO DAILY 09/26/17 [History ] Digestive 8/L.acidoph/Pectin [Digestive Enzymes Tablet] 1 each PO DAILY [History] [place] 150 mg PO DAILY 09/26/17 [History] Levothyroxine Sodium [Synthroid] 100 mcg PO ACBREAKFAST 09/26/17 [History] Magnesium 200 mg PO DAILY 09/26/17 [History] Milk Thistle 1 gm MC DAILY 09/26/17 [History] Polyvinyl Alcohol/Povidone/Pf [Refresh Classic Eye Drops] 1 drop DAILY 09/26/17 [History] Potassium Citrate [Potassium Citrate ER] 5 meq PO DAILY 09/26/17 [History] Selenium 200 mcg PO DAILY 09/26/17 [History] Vit A/Vit C/Vit E/Zinc/Copper [Preservision] 1 each PO DAILY 09/26/17 [History] Vitamin B Complex [B Complex] 1 each PO DAILY 09/26/17 [History] Vitamin E Acetate [Vitamin E] 200 unit PO DAILY 09/26/17 [History] Zinc 22.5 mg PO DAILY 09/26/17 [History] Patient Handouts: Suicidal Feelings: How to Help Yourself Referrals: Aleksandr Stephen MD [Primary Care Provider] - - Discharge Summary/Plan Comment DC Time >30 min.: No Discharge Summary/Plan Comment: Transfer to [place], [place] for inpatient psychiatric treatment - General Info Date of Service: 09/27/17 Admission Dx/Problem (Free Text: Suicide Attempt Subjective Update: Follow Up Functional Status: Reports: Pain Controlled, Tolerating Diet, Ambulating, Urinating. Denies: New Symptoms - Review of Systems General: Denies: Fever, Weakness, Fatigue, Malaise HEENT: Reports: No Symptoms Pulmonary: Denies: Shortness of Breath Cardiovascular: Denies: Chest Pain Gastrointestinal: Denies: Abdominal Pain, Nausea, Vomiting Genitourinary: Reports: No Symptoms Musculoskeletal: Reports: No Symptoms Skin: Denies: Cyanosis, Jaundice, Diaphoresis, Rash Neurological: Denies: Confusion, Difficulty Walking, Weakness, Gait Disturbance Psychiatric: Denies: Depression, Anxiety, Agitation, Hallucinations Systems Review Comment: No significant overnight or acute issues. She is about the same. She reports no new complaints. - Patient Data Vitals - Most Recent: Last Vital Signs Temp 36.5 C 09/27/17 04:00 Pulse 54 L 09/27/17 04:00 Resp 15 09/27/17 04:00 BP 100/46 L 09/27/17 04:00 Pulse Ox 98 09/27/17 04:00 Weight - Most Recent: 68.538 kg I&O - Last 24 hours: Intake & Output 09/26/17 09/26/17 09/27/17 14:59 22:59 06:59 Intake Total 500 500 Output Total 250 400 Balance 250 100 Lab Results - Last 24 hrs: Laboratory Results - last 24 hr 09/27/17 09/27/17 Range/Units 06:07 06:07 WBC 5.10 (3.98-10.04) K/mm3 RBC 4.26 (3.98-5.22) M/mm3 Hgb 14.1 (11.2-15.7) gm/L Hct 41.3 (34.1-44.9) % MCV 96.9 H (79.4-94.8) fl MCH 33.1 H (25.6-32.2) pg MCHC 34.1 (32.2-35.5) g/dl RDW Std Deviation 40.7 (36.4-46.3) fL Plt Count 123 L (182-369) K/mm3 MPV 9.8 (9.4-12.3) fl Neut % (Auto) 45.5 (34.0-71.1) % Lymph % (Auto) 42.0 (19.3-51.7) % Moffat % (Auto) 9.6 (4.7-12.5) % Eos % (Auto) 2.5 (0.7-5.8) Baso % (Auto) 0.2 (0.1-1.2) % Neut # (Auto) 2.32 (1.56-6.13) K/mm3 Lymph # (Auto) 2.14 (1.18-3.74) K/mm3 Moffat # (Auto) 0.49 H (0.24-0.36) K/mm3 Eos # (Auto) 0.13 (0.04-0.36) K/mm3 Baso # (Auto) 0.01 (0.01-0.08) K/mm3 Sodium 147 H (136-145) mEq/L Potassium 3.9 (3.5-5.1) mEq/L Chloride 110 H (98-107) mEq/L Carbon Dioxide 29 (21-32) mEq/L Anion Gap 11.9 (5-15) BUN 12 (7-18) mg/dL Creatinine 0.8 (0.55-1.02) mg/dL Est Cr Clr Drug Dosing 51.66 mL/min Estimated GFR (MDRD) > 60 (>60) mL/min BUN/Creatinine Ratio 15.0 (14-18) Glucose 90 (83-115) mg/dL Calcium 9.5 (8.5-10.1) mg/dL Magnesium 1.7 L (1.8-2.4) mg/dl Free T4 1.07 (0.76-1.46) ng/dL Med Orders - Current: Current Medications Acetaminophen (Tylenol) 650 mg PO Q4H PRN PRN Reason: Pain (Mild 1-3)/fever Hydrocodone Bitart/Acetaminophen ([place]all 325-5 Mg) 1 tab PO Q4H PRN PRN Reason: Pain (moderate 4-6) Albuterol/Ipratropium (Duoneb 3.0-0.5 Mg/3 Ml) 3 ml NEB Q4H PRN PRN Reason: Shortness Of Breath/wheezing Artificial Tears (Isopto Tears 0.5% Ophth Soln) 0 ml EYEBOTH DAILY [facility] Ascorbic Acid (Vitamin C) 1,000 mg PO DAILY [facility] Bisacodyl (Dulcolax) 5 mg PO DAILY PRN PRN Reason: Constipation Calcium Carbonate (Calcium Carbonate/Vitamin D 1500 Mg-200 Unit) 1 tab PO BIDMEALS [facility] Last Admin: 09/27/17 06:50 Dose: 1 tab Docusate Sodium (Colace) 100 mg PO BID PRN PRN Reason: Constipation Hydralazine HCl (Apresoline) 10 mg IVPUSH Q4H PRN PRN Reason: Hypertension Hydromorphone HCl (Dilaudid) 0.25 mg IVPUSH Q2H PRN PRN Reason: Pain (severe 7-10) Promethazine HCl 12.5 mg/ (Sodium Chloride) 50.5 mls @ 100 mls/hr IV Q6H PRN PRN Reason: Nausea/Vomiting Levothyroxine Sodium (Synthroid) 100 mcg PO ACBREAKFAST [facility] Last Admin: 09/27/17 06:50 Dose: 100 mcg Lorazepam (Ativan) 2 mg IVPUSH Q4H PRN PRN Reason: Seizures Lorazepam (Ativan) 0.5 mg IVPUSH Q4H PRN PRN Reason: Anxiety Magnesium Oxide (Magnesium Oxide) 200 mg PO DAILY [facility] Magnesium Sulfate (Pharmacy To Dose - Magnesium Replacement) 1 dose .XX ASDIRECTED [facility] Metoprolol Tartrate (Lopressor) 5 mg IVPUSH Q4H PRN PRN Reason: Tachycardia Non-Formulary Medication (Amino Acids [Amino Acid]) 1 each PO DAILY [facility] Non-Formulary Medication (Cholecalciferol (Vitamin D3) [Vitamin D3]) 10,000 unit PO DAILY [facility] Non-Formulary Medication (Digestive 8/L.Acidoph/Pectin [Digestive Enzymes Tablet ]) 1 each PO DAILY [facility] Non-Formulary Medication ([place] Vista [Meadow Vista]) 150 mg PO DAILY [facility] Non-Formulary Medication (Milk Thistle [Milk Thistle]) 1 gm MC DAILY [facility] Non-Formulary Medication (Potassium Citrate [Potassium Citrate Er]) 5 meq PO DAILY [facility] Non-Formulary Medication (Selenium [Selenium]) 200 mcg PO DAILY [facility] Non-Formulary Medication (Vitamin E Acetate [Vitamin E]) 200 unit PO DAILY [facility] Non-Formulary Medication (Zinc [Zinc]) 22.5 mg PO DAILY [facility] Ondansetron HCl (Zofran) 4 mg IV Q6H PRN PRN Reason: Nausea/Vomiting Polyethylene Glycol (Miralax) 17 gm PO DAILY PRN PRN Reason: Constipation Potassium Chloride (Pharmacy To Dose - Potassium Replacement) 1 dose .XX ASDIRECTED [facility] Senna/Docusate Sodium (Senna Plus) 1 tab PO BID PRN PRN Reason: Constipation Sodium Chloride (Saline Flush) 10 ml FLUSH ASDIRECTED PRN PRN Reason: Keep Vein Open Last Admin: 09/26/17 15:09 Dose: 10 ml Temazepam (Restoril) 7.5 mg PO BEDTIME PRN PRN Reason: Sleep Vit A/Vit C/Vit E/Selen/Cu/Zn/Lutei (Icaps Mv) 1 tab PO DAILY [facility] Vitamin B Complex/Vitamin C (Super B With Vitamin C) 1 cap PO DAILY [facility] Discontinued Medications Sodium Chloride (Normal Saline) 1,000 mls @ 100 mls/hr IV ASDIRECTED [facility] Last Admin: 09/26/17 15:08 Dose: 250 mls/hr Pantoprazole Sodium (Protonix Iv) 40 mg IVPUSH ONETIME ONE Stop: 09/26/17 22:56 Last Admin: 09/26/17 23:01 Dose: 40 mg - Exam General: Reports: Alert, Oriented, Cooperative, No Acute Distress HEENT: Reports: Pupils Equal, Pupils Reactive, EOMI, Mucous Membr. Moist/Mather Neck: Reports: Supple, Trachea Midline, No Thyromegaly Lungs: Reports: Clear to Auscultation, Normal Respiratory Effort Cardiovascular: Reports: Regular Rate, Regular Rhythm GI/Abdominal Exam: Normal Bowel Sounds, Soft, Non-Tender, No Organomegaly, No Distention, No Abnormal Bruit, No Mass (Female) Exam: Deferred Rectal (Female) Exam: Deferred Back Exam: Reports: Normal Inspection, Decreased Range of Motion Extremities: Normal Inspection, Normal Range of Motion, Non-Tender, No Pedal Edema, Normal Capillary Refill Skin: Reports: Warm, Dry, Intact Neurological: Reports: No New Focal Deficit Psy/Mental Status: Reports: Normal Affect, Depressed, Suicidal Ideation. Denies : Anxious, Homicidal Ideation, Hallucinations *Q Meaningful Use (DIS) - VTE *Q VTE Criteria *Q: - Stroke *Q Stroke Criteria *Q: - AMI *Q AMI Criteria *Q:
[2017-09-27] MEDS ORDERED: POTASSIUM CITRATE 99 MG PO SCH (09:00)
[2017-09-27] MEDS ORDERED: HAWTHORN PO SCH (09:00)
[2017-09-27] MEDS ORDERED: AMINO ACIDS PO SCH (09:00)
[2017-09-27] MEDS ORDERED: ZINC PICOLINATE PO SCH (09:00)
[2017-09-27] MEDS ORDERED: Multivitamins with Minerals/Folic Acid/Lutein/Zeaxanth Tab PO SCH (09:00)
[2017-09-27] MEDS ORDERED: Vitamin B Complex With Vitamin C Cap PO SCH (09:00)
[2017-09-27] MEDS ORDERED: [UNRECOGNIZED DRUG - OTHER] PO SCH (09:00)
[2017-09-27] MEDS ORDERED: Non-Formulary Medication 1 Each (Cholecalciferol (Vitamin D3) [Vitamin D3] 10,000 UNIT) PO SCH (09:00)
[2017-09-27] MEDS ORDERED: MILK THISTLE MC SCH (09:00)
[2017-09-27] MEDS ORDERED: Hypromellose 0.5% Ophth Soln 15 ML Bottle EYEBOTH SCH (09:00)
[2017-09-27] MEDS ORDERED: Vitamin E (dl-alpha-tocopherol acetate) 400 Unit Cap PO SCH (09:00)
[2017-09-27] MEDS ORDERED: Ascorbic Acid 500 MG Tab PO SCH (09:00)
[2017-09-27] MEDS ORDERED: SELENIUM 200 MCG PO SCH (09:00)
[2017-09-27] MEDS ORDERED: MAGNESIUM MALATE PO SCH (09:00)
== END 2017-09-27 10:15 | disposition other institution (70) | DRG 918 ==
LOC: JD.ED 13:45 → JD.ICU 20:18
PROVIDERS: ADMIT Internal Medicine; ATTEND Internal Medicine
DX: T40.2X2A Poisoning by other opioids, intentional self-harm, initial encounter (principal); E03.9 Hypothyroidism, unspecified; H91.90 Unspecified hearing loss, unspecified ear; H54.7 Unspecified visual loss; M19.90 Unspecified osteoarthritis, unspecified site; G89.4 Chronic pain syndrome
CPT/HCPCS: 36415; 80048; 80053; 80306; 81001; 83735; 84439; 84443; 85025; 85610; 93005; 96360; 96361; 99284; 99285-25; A9270; A9270-GY; C9113; G0480; J3475; J7040; J7050

== ENCOUNTER 2017-09-30 04:18 | Inpatient (IN) | payer OTHER ==
[2017-09-30] MEDS ORDERED: Metoclopramide 10 MG/2 ML SDV IVPUSH ONE (04:26)
[2017-09-30] MEDS ORDERED: HYDROmorphone 0.5 MG/0.5 ML Syringe IVPUSH ONE (04:26)
--- NOTE | 2017-09-30 04:28 | EDM.PDOC ---
ED HPI GENERAL MEDICAL PROBLEM - General Chief Complaint: Gastrointestinal Problem Stated Complaint: [facility] Time Seen by Provider: 09/30/17 04:25 Source of Information: Reports: Patient History Limitations: Reports: No Limitations - History of Present Illness INITIAL COMMENTS - FREE TEXT/NARRATIVE: 76-year-old female is brought to the hospital after she called the local ambulance. She reports intractable nausea vomiting and diarrhea. She states illness started suddenly last evening. She's been unable to keep down any food or fluids. She reports large-volume diarrhea stool losses almost every half hour for the last 8 hours. She feels lightheaded and dizzy. She presents with reported visual and hearing impairment so she seemed to understand me quite easily. She indicates no blood in the emesis or diarrhea. She reports her perianal area is getting very tender from all the diarrhea. Further to the history is that she was seen through the ED on September 26 after taking an overdose of her hydrocodone 7.5/200 mg tablets. She took this with deliberate intent to end her life. She had researched on the Internet to take 90 mg at one time which should've been a lethal dose. However failing this she took another 24 mg later the same day without definite occurring. She was seen through the ED and admitted to hospital overnight where she remained stable. She was then transferred to [facility] for psychiatric evaluation treatment. It appears that she just got back home yesterday. She admits that she was given large doses of magnesium to provide bowel cleanse. She states the diarrhea has not stopped since the magnesium was given. She did not express any suicidal ideation on the initial interview in the ED. She reports she's feeling weak dizzy and remains nauseated. It is likely that she is withdrawing from narcotics for which she has been taking for a long period of time for chronic pain syndrome. Her narcotics of course were not restarted when she took an intentional overdose of medication. Onset: Sudden Onset Date: 09/29/17 Onset Time: 19:00 Duration: Hour(s): Location: Reports: Abdomen (Reported continuous intractable nausea and vomiting and loose watery diarrhea.) Quality: Reports: Other Severity: Moderate (Intermittent moderate abdominal cramping pain) Improves with: Reports: None Worsens with: Reports: Other Context: Reports: Sick Contact (Possible sick contact while in [place]). Denies: Activity (Eating or drinking.), Exercise, Lifting, Trauma ( Hospital.), Other Associated Symptoms: Reports: Fever/Chills, Loss of Appetite, Malaise, Nausea/ Vomiting, Other (Diarrhea stool loss.). 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 (see below) (None.) Abdominal Pain Score (Numeric/FACES): 5 - Related Data Allergies Allergy/AdvReac Type Severity Reaction Status Date / Time No Known Allergies Allergy Verified 09/30/17 04:25 Home Meds: Home Meds Amino Acids [Amino Acid] 1 each PO DAILY 09/26/17 [History] Ascorbic Acid [C-1000] 1,000 mg PO DAILY 09/26/17 [History] Calcium Carbonate/Vitamin D3 [Calcium Carbonate/Vitamin D 1250 MG-200 Unit] 1 tab PO BIDMEALS 09/26/17 [History] Cholecalciferol (Vitamin D3) [Vitamin D3] 10,000 unit PO DAILY 09/26/17 [History ] Digestive 8/L.acidoph/Pectin [Digestive Enzymes Tablet] 1 each PO DAILY [History] [place] 150 mg PO TID 09/26/17 [History] Magnesium 200 mg PO DAILY 09/26/17 [History] Milk Thistle 1 gm MC DAILY 09/26/17 [History] Polyvinyl Alcohol/Povidone/Pf [Refresh Classic Eye Drops] 1 drop DAILY 09/26/17 [History] Potassium Citrate [Potassium Citrate ER] 5 meq PO DAILY 09/26/17 [History] Selenium 200 mcg PO DAILY 09/26/17 [History] Vit A/Vit C/Vit E/Zinc/Copper [Preservision] 1 each PO DAILY 09/26/17 [History] Vitamin B Complex [B Complex] 1 each PO DAILY 09/26/17 [History] Vitamin E Acetate [Vitamin E] 400 unit PO DAILY 09/26/17 [History] Zinc 22.5 mg PO DAILY 09/26/17 [History] Levothyroxine 112 mcg PO ACBREAKFAST 09/30/17 [History] traMADol [Ultram] 50 mg PO BEDTIME 09/30/17 [History] traMADol [Ultram] 50 mg PO Q6H PRN 09/30/17 [History] Past Medical History HEENT History: Reports: Hard of Hearing, Impaired Vision Respiratory History: Reports: Asthma Gastrointestinal History: Reports: None Genitourinary History: Reports: None 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 TSH when checked on the of this month was 12.2 indicating she is not taking appropriate replacement therapy. 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 She takes a multitude of dtww-iva-etpthyl medications to correct these imbalances.) Oncologic (Cancer) History: Reports: Breast, Other (See Below) Other Oncologic History: left breast cancer--pt states that this is self diagnosed - Infectious Disease History Infectious Disease History: Reports: Chicken Pox, Measles, Mumps - Past Surgical History HEENT Surgical History: Reports: Cataract Surgery Respiratory Surgical History: Reports: None GI Surgical History: Reports: Cholecystectomy, Colonoscopy Female Surgical History: Reports: Hysterectomy, Oophorectomy Musculoskeletal Surgical History: Reports: Other (See Below) Other Musculoskeletal Surgeries/Procedures:: left harry fx. Dermatological Surgical History: Reports: None Social & Family History - Family History Oncologic: Reports: Bone, Lymphoma, Prostate - Tobacco Use Smoking Status *Q: Never Smoker Second Hand Smoke Exposure: No - Caffeine Use Caffeine Use: Reports: None - Recreational Drug Use Recreational Drug Use: No - Living Situation & Occupation Living situation: Reports: , Alone Occupation: Retired ED ROS GENERAL - Review of Systems Review Of Systems: See Below Constitutional: Reports: Chills, Malaise, Weakness, Fatigue, Decreased Appetite , Weight Loss. Denies: Fever HEENT: Reports: Glasses (Has poor vision.), Hearing Loss Respiratory: Reports: Shortness of Breath. Denies: Wheezing, Pleuritic Chest Pain (On exertion), Cough, Sputum Cardiovascular: Reports: Blood Pressure Problem, Dyspnea on Exertion, Lightheadedness. Denies: Chest Pain, Claudication, Edema, Orthopnea (Has known hypertension) Endocrine: Reports: Fatigue (Chronically) GI/Abdominal: Reports: Abdominal Pain, Diarrhea (Intermittent abdominal cramping pain with associated onset of nausea vomiting and diarrhea.), Nausea, Vomiting. Denies: Hematemesis, Hematochezia : Reports: No Symptoms Musculoskeletal: Reports: Back Pain (Chronic back pain) Skin: Reports: No Symptoms Neurological: Reports: Dizziness, Difficulty Walking (Patient reports difficult walking by paramedics indicate that they found her up dressed and walking around her apartment when they picked her up.), Weakness. Denies: Paresthesia, Pre-Existing Deficit, Seizure, Syncope, Tingling Psychiatric: Reports: Depression ([place]. Suicide attempt by way of ingestion of narcotics on September 26. She expressly unequivocal wish to be at that time. She was kept in hospital overnight at the suggestion of the psychiatrist in [place] and was later transferred to that facility for psychiatric evaluation on the of this month. She was released yesterday.) ED EXAM, GI/ABD - Physical Exam Exam: See Below Exam Limited By: Physical Impairment (Mildly hard of hearing.) General Appearance: Anxious, Mild Distress, Thin, Other (Sallow in color.) Eyes: Bilateral: Normal Appearance (No jaundice.) Throat/Mouth: Other Head: Atraumatic, Normocephalic Neck: Normal Inspection, Supple, Non-Tender, Full Range of Motion. No: Lymphadenopathy (L), Lymphadenopathy (R) Respiratory/Chest: No Respiratory Distress, Lungs Clear, Normal Breath Sounds Cardiovascular: Normal Peripheral Pulses, No Edema, No Gallop, No Murmur (58/m) , No Rub, Bradycardia GI/Abdominal Exam: Abnormal Bowel Sounds (Active bowel sounds throughout all 4 quadrants. Slightly distended and diffusely tympanitic to percussion.) Back Exam: Normal Inspection, Decreased Range of Motion, Vertebral Tenderness ( Along the paraspinal muscles along the lumbar spine.). No: Full Range of Motion Extremities: Normal Inspection, No Pedal Edema, Other (Tenderness to palpation of the lower extremities with no signs of edema.) Neurological: Alert, Oriented, CN II-XII Intact, Normal Cognition Psychiatric: Anxious Skin Exam: Warm, Dry, Intact, Pallor (Sallow color to her complexion.) Course - Vital Signs Last Recorded V/S: Last Vital Signs Temp 36.8 C 09/30/17 20:43 Pulse 51 L 09/30/17 20:43 Resp 16 09/30/17 20:43 BP 135/72 09/30/17 20:43 Pulse Ox 95 09/30/17 20:43 - Orders/Labs/Meds Orders: Active Orders 24 hr Category Date Time Status Admission Status [Patient Status] [ADT] Routine ADT 09/30/17 06:38 Active Patient Status [ADT] Routine ADT 09/30/17 07:20 Active Ambulate [RC] 10,15,20 Care 09/30/17 07:19 Active Antiembolic Devices [RC] QSHIFT Care 09/30/17 07:21 Active Cardiac Monitoring [RC] CONTINUOUS Care 09/30/17 07:21 Active Height and Weight [RC] 04 Care 09/30/17 07:19 Active Intake and Output [RC] 04,16 Care 09/30/17 07:21 Active Oxygen Therapy [RC] PRN Care 09/30/17 07:20 Active Up With Assistance [RC] BID Care 09/30/17 07:19 Active VTE/DVT Education [RC] QSHIFT Care 09/30/17 07:20 Active Vital Signs [RC] Q4HR Care 09/30/17 07:20 Active Consult to Film Spooler [CONS] Routine Cons 09/30/17 07:19 Active BASIC METABOLIC PANEL,BMP [CHEM] AM Lab 10/01/17 05:11 Ordered C-REACTIVE PROTEIN [CHEM] AM Lab 10/01/17 05:11 Ordered CBC WITH AUTO DIFF [HEME] AM Lab 10/01/17 05:11 Ordered MAGNESIUM [CHEM] AM Lab 10/01/17 05:11 Ordered Acetaminophen/HYDROcodone [[place] 325-5 MG] Med 09/30/17 07:19 Active 1 tab PO Q4H PRN Dextrose 5%-0.9% NaCl with KCl [D5 NS with 20 mEq KCl] Med 09/30/17 06:45 Active 1,000 ml IV ASDIRECTED HYDROmorphone [Dilaudid] Med 09/30/17 07:19 Active 0.5 mg IVPUSH Q2H PRN Hypromellose [Isopto Tears 0.5% Ophth Soln] Med 09/30/17 09:00 Active 0 ml EYEBOTH DAILY LORazepam [Ativan] Med 09/30/17 07:19 Active 0.5 mg IV Q6H PRN Ondansetron [Zofran ODT] Med 09/30/17 07:19 Active 4 mg PO Q4H PRN Ondansetron [Zofran] Med 09/30/17 07:19 Active 4 mg IV Q4H PRN Saccharomyces Boulardii [Florastor] Med 09/30/17 09:00 Active 250 mg PO DAILY Sodium Chloride 0.9% [Saline Flush] Med 09/30/17 06:54 Active 10 ml FLUSH ONETIME PRN Temazepam [Restoril] Med 09/30/17 07:19 Active 7.5 mg PO BEDTIME PRN Antiembolic Hose [OM.PC] Per Unit Routine Oth 09/30/17 07:21 Ordered Resuscitation Status Routine Resus Stat 09/30/17 07:19 Ordered Medication Orders Hydrocodone Bitart/Acetaminophen ([place] 325-5 Mg) 1 tab PO Q4H PRN PRN Reason: Pain (moderate 4-6) Artificial Tears (Isopto Tears 0.5% Ophth Soln) 0 ml EYEBOTH DAILY [facility] Last Admin: 09/30/17 08:53 Dose: 1 drop Dicyclomine HCl (Bentyl) 10 mg PO QIDACANDBED PRN PRN Reason: abd pain/cramping Famotidine (Pepcid) 20 mg IVPUSH BID [facility] Last Admin: 09/30/17 20:45 Dose: 20 mg Admin: 09/30/17 08:44 Dose: 20 mg Hydromorphone HCl (Dilaudid) 0.5 mg IVPUSH Q2H PRN PRN Reason: Pain (severe 7-10) Last Admin: 09/30/17 16:25 Dose: 0.5 mg Admin: 09/30/17 09:01 Dose: 0.5 mg Potassium Chloride/Dextrose/Sod Cl (D5 Ns With 20 Meq Kcl) 1,000 mls @ 125 mls/ hr IV ASDIRECTED [facility] Last Admin: 09/30/17 16:36 Dose: 125 mls/hr Infusion: 09/30/17 16:36 Dose: 125 mls/hr Admin: 09/30/17 08:50 Dose: 125 mls/hr Levothyroxine Sodium (Levothyroxine) 112 mcg PO ACBREAKFAST [facility] Lorazepam (Ativan) 0.5 mg IV Q6H PRN PRN Reason: Nausea/Vomiting--restlessness Lorazepam (Ativan) 0 mg .XX Q4H PRN; Protocol PRN Reason: CIWAA scale Last Admin: 09/30/17 20:58 Dose: 1 mg Ondansetron HCl (Zofran Odt) 4 mg PO Q4H PRN PRN Reason: nausea, able to take PO Ondansetron HCl (Zofran) 4 mg IV Q4H PRN PRN Reason: Nausea/Vomiting Saccharomyces Boulardii (Florastor) 250 mg PO DAILY ALEKSANDAR Last Admin: 09/30/17 08:53 Dose: 250 mg Sodium Chloride (Saline Flush) 10 ml FLUSH ONETIME PRN PRN Reason: IV Flush Temazepam (Restoril) 7.5 mg PO BEDTIME PRN PRN Reason: Sleep Last Admin: 09/30/17 21:00 Dose: 7.5 mg Labs: Laboratory Tests 09/30/17 09/30/17 09/30/17 Range/Units 04:30 04:30 04:30 WBC 9.57 (3.98-10.04) K/mm3 RBC 4.90 (3.98-5.22) M/mm3 Hgb 16.0 H (11.2-15.7) gm/L Hct 45.4 H (34.1-44.9) % MCV 92.7 (79.4-94.8) fl MCH 32.7 H (25.6-32.2) pg MCHC 35.2 (32.2-35.5) g/dl RDW Std Deviation 39.1 (36.4-46.3) fL Plt Count 144 L (182-369) K/mm3 MPV 10.0 (9.4-12.3) fl Neutrophils % (Manual) 72 H (40-60) % Band Neutrophils % 0 (0-10) % Lymphocytes % (Manual) 24 (20-40) % Atypical Lymphs % 0 % Monocytes % (Manual) 3 (2-10) % Eosinophils % (Manual) 1 (0.7-5.8) % Basophils % (Manual) 0 L (0.1-1.2) Platelet Estimate Adequate RBC Morph Comment Normal Sodium 140 (136-145) mEq/L Potassium 3.4 L (3.5-5.1) mEq/L Chloride 102 (98-107) mEq/L Carbon Dioxide 28 (21-32) mEq/L Anion Gap 13.4 (5-15) BUN 14 (7-18) mg/dL Creatinine 0.7 (0.55-1.02) mg/dL Est Cr Clr Drug Dosing 59.04 mL/min Estimated GFR (MDRD) > 60 (>60) mL/min BUN/Creatinine Ratio 20.0 H (14-18) Glucose 112 (83-115) mg/dL Calcium 10.1 (8.5-10.1) mg/dL Magnesium 1.8 (1.8-2.4) mg/dl Ferritin 114 (8-252) ng/ml Total Bilirubin 0.5 (0.2-1.0) mg/dL AST 24 (15-37) U/L ALT 34 (14-59) U/L Alkaline Phosphatase 47 (46-116) U/L C-Reactive Protein < 0.2 (<1.0) mg/dL Total Protein 7.2 (6.4-8.2) g/dl Albumin 3.8 (3.4-5.0) g/dl Globulin 3.4 gm/dL Albumin/Globulin Ratio 1.1 (1-2) Triglycerides (<150) mg/dL Cholesterol (<200) mg/dL LDL Cholesterol Direct (<100) mg/dL HDL Cholesterol (40-59) mg/dL Lipase 658 H (73-393) U/L Urine Color (Yellow) Urine Appearance (Clear) Urine pH (5.0-8.0) Ur Specific [place] (1.005-1.030) Urine Protein (Negative) Urine Glucose (UA) (Negative) Urine Ketones (Negative) Urine Occult Blood (Negative) Urine Nitrite (Negative) Urine Bilirubin (Negative) Urine Urobilinogen (0.2-1.0) Ur Leukocyte Esterase (Negative) Urine Opiates Screen (NEGATIVE) Ur Buprenorphine Scrn (NEGATIVE) Ur Oxycodone Screen (NEGATIVE) Urine Methadone Screen (NEGATIVE) Ur Propoxyphene Screen (NEGATIVE) Ur Barbiturates Screen (NEGATIVE) Ur Tricyclics Screen (NEGATIVE) Ur Phencyclidine Scrn (NEGATIVE) Ur Amphetamine Screen (NEGATIVE) U Methamphetamines Scrn (NEGATIVE) U Benzodiazepines Scrn (NEGATIVE) U Cocaine Metab Screen (NEGATIVE) U Marijuana (THC) Screen (NEGATIVE) H. pylori IgG Antibody (NEGATIVE) 09/30/17 09/30/17 09/30/17 Range/Units 04:30 04:30 04:35 WBC (3.98-10.04) K/mm3 RBC (3.98-5.22) M/mm3 Hgb (11.2-15.7) gm/L Hct (34.1-44.9) % MCV (79.4-94.8) fl MCH (25.6-32.2) pg MCHC (32.2-35.5) g/dl RDW Std Deviation (36.4-46.3) fL Plt Count (182-369) K/mm3 MPV (9.4-12.3) fl Neutrophils % (Manual) (40-60) % Band Neutrophils % (0-10) % Lymphocytes % (Manual) (20-40) % Atypical Lymphs % % Monocytes % (Manual) (2-10) % Eosinophils % (Manual) (0.7-5.8) % Basophils % (Manual) (0.1-1.2) Platelet Estimate RBC Morph Comment Sodium (136-145) mEq/L Potassium (3.5-5.1) mEq/L Chloride (98-107) mEq/L Carbon Dioxide (21-32) mEq/L Anion Gap (5-15) BUN (7-18) mg/dL Creatinine (0.55-1.02) mg/dL Est Cr Clr Drug Dosing mL/min Estimated GFR (MDRD) (>60) mL/min BUN/Creatinine Ratio (14-18) Glucose (83-115) mg/dL Calcium (8.5-10.1) mg/dL Magnesium (1.8-2.4) mg/dl Ferritin (8-252) ng/ml Total Bilirubin (0.2-1.0) mg/dL AST (15-37) U/L ALT (14-59) U/L Alkaline Phosphatase (46-116) U/L C-Reactive Protein (<1.0) mg/dL Total Protein (6.4-8.2) g/dl Albumin (3.4-5.0) g/dl Globulin gm/dL Albumin/Globulin Ratio (1-2) Triglycerides 49 (<150) mg/dL Cholesterol 202 H (<200) mg/dL LDL Cholesterol Direct 123 H* (<100) mg/dL HDL Cholesterol 65.0 H (40-59) mg/dL Lipase (73-393) U/L Urine Color (Yellow) Urine Appearance (Clear) Urine pH (5.0-8.0) Ur Specific [place] (1.005-1.030) Urine Protein (Negative) Urine Glucose (UA) (Negative) Urine Ketones (Negative) Urine Occult Blood (Negative) Urine Nitrite (Negative) Urine Bilirubin (Negative) Urine Urobilinogen (0.2-1.0) Ur Leukocyte Esterase (Negative) Urine Opiates Screen Negative (NEGATIVE) Ur Buprenorphine Scrn Negative (NEGATIVE) Ur Oxycodone Screen Negative (NEGATIVE) Urine Methadone Screen Negative (NEGATIVE) Ur Propoxyphene Screen Negative (NEGATIVE) Ur Barbiturates Screen Negative (NEGATIVE) Ur Tricyclics Screen Negative (NEGATIVE) Ur Phencyclidine Scrn Negative (NEGATIVE) Ur Amphetamine Screen Negative (NEGATIVE) U Methamphetamines Scrn Negative (NEGATIVE) U Benzodiazepines Scrn Negative (NEGATIVE) U Cocaine Metab Screen Negative (NEGATIVE) U Marijuana (THC) Screen Negative (NEGATIVE) H. pylori IgG Antibody Negative (NEGATIVE) 09/30/17 Range/Units 04:35 WBC (3.98-10.04) K/mm3 RBC (3.98-5.22) M/mm3 Hgb (11.2-15.7) gm/L Hct (34.1-44.9) % MCV (79.4-94.8) fl MCH (25.6-32.2) pg MCHC (32.2-35.5) g/dl RDW Std Deviation (36.4-46.3) fL Plt Count (182-369) K/mm3 MPV (9.4-12.3) fl Neutrophils % (Manual) (40-60) % Band Neutrophils % (0-10) % Lymphocytes % (Manual) (20-40) % Atypical Lymphs % % Monocytes % (Manual) (2-10) % Eosinophils % (Manual) (0.7-5.8) % Basophils % (Manual) (0.1-1.2) Platelet Estimate RBC Morph Comment Sodium (136-145) mEq/L Potassium (3.5-5.1) mEq/L Chloride (98-107) mEq/L Carbon Dioxide (21-32) mEq/L Anion Gap (5-15) BUN (7-18) mg/dL Creatinine (0.55-1.02) mg/dL Est Cr Clr Drug Dosing mL/min Estimated GFR (MDRD) (>60) mL/min BUN/Creatinine Ratio (14-18) Glucose (83-115) mg/dL Calcium (8.5-10.1) mg/dL Magnesium (1.8-2.4) mg/dl Ferritin (8-252) ng/ml Total Bilirubin (0.2-1.0) mg/dL AST (15-37) U/L ALT (14-59) U/L Alkaline Phosphatase (46-116) U/L C-Reactive Protein (<1.0) mg/dL Total Protein (6.4-8.2) g/dl Albumin (3.4-5.0) g/dl Globulin gm/dL Albumin/Globulin Ratio (1-2) Triglycerides (<150) mg/dL Cholesterol (<200) mg/dL LDL Cholesterol Direct (<100) mg/dL HDL Cholesterol (40-59) mg/dL Lipase (73-393) U/L Urine Color Yellow (Yellow) Urine Appearance Clear (Clear) Urine pH 8.5 H (5.0-8.0) Ur Specific [place] 1.015 (1.005-1.030) Urine Protein Negative (Negative) Urine Glucose (UA) Negative (Negative) Urine Ketones Negative (Negative) Urine Occult Blood Negative (Negative) Urine Nitrite Negative (Negative) Urine Bilirubin Negative (Negative) Urine Urobilinogen 0.2 (0.2-1.0) Ur Leukocyte Esterase Negative (Negative) Urine Opiates Screen (NEGATIVE) Ur Buprenorphine Scrn (NEGATIVE) Ur Oxycodone Screen (NEGATIVE) Urine Methadone Screen (NEGATIVE) Ur Propoxyphene Screen (NEGATIVE) Ur Barbiturates Screen (NEGATIVE) Ur Tricyclics Screen (NEGATIVE) Ur Phencyclidine Scrn (NEGATIVE) Ur Amphetamine Screen (NEGATIVE) U Methamphetamines Scrn (NEGATIVE) U Benzodiazepines Scrn (NEGATIVE) U Cocaine Metab Screen (NEGATIVE) U Marijuana (THC) Screen (NEGATIVE) H. pylori IgG Antibody (NEGATIVE) Meds: Medications Generic Name Dose Route Start Last Admin Trade Name Freq PRN Reason Stop Dose Admin Hydrocodone Bitart/Acetaminophen 1 tab 09/30/17 07:19 [place] 325-5 Mg PO Q4H PRN Pain (moderate 4-6) Artificial Tears 0 ml 09/30/17 09:00 09/30/17 08:53 Isopto Tears 0.5% Ophth Soln EYEBOTH 1 drop DAILY ALEKSANDAR Administration Dicyclomine HCl 10 mg 09/30/17 12:07 Bentyl PO QIDACANDBED PRN abd pain/cramping Famotidine 20 mg 09/30/17 09:00 09/30/17 20:45 Pepcid IVPUSH 20 mg BID ALEKSANDAR Administration Hydromorphone HCl 0.5 mg 09/30/17 07:19 09/30/17 16:25 Dilaudid IVPUSH 0.5 mg Q2H PRN Administration Pain (severe 7-10) Potassium Chloride/Dextrose/Sod Cl 1,000 mls @ 125 mls/hr 09/30/17 06:45 16:36 D5 Ns With 20 Meq Kcl IV 125 mls/hr ASDIRECTED ALEKSANDAR Administration Levothyroxine Sodium 112 mcg 10/01/17 06:00 Levothyroxine PO ACBREAKFAST ALEKSANDAR Lorazepam 0.5 mg 09/30/17 07:19 Ativan IV Q6H PRN Nausea/Vomiting--restlessness Lorazepam 0 mg 09/30/17 12:05 09/30/17 20:58 Ativan .XX 1 mg Q4H PRN Administration CIWAA scale Protocol Ondansetron HCl 4 mg 09/30/17 07:19 Zofran Odt PO Q4H PRN nausea, able to take PO Ondansetron HCl 4 mg 09/30/17 07:19 Zofran IV Q4H PRN Nausea/Vomiting Saccharomyces Boulardii 250 mg 09/30/17 09:00 09/30/17 08:53 Florastor PO 250 mg DAILY ALEKSANDAR Administration Sodium Chloride 10 ml 09/30/17 06:54 Saline Flush FLUSH ONETIME PRN IV Flush Temazepam 7.5 mg 09/30/17 07:19 09/30/17 21:00 Restoril PO 7.5 mg BEDTIME PRN Administration Sleep Discontinued Medications Generic Name Dose Route Start Last Admin Trade Name Freq PRN Reason Stop Dose Admin Dicyclomine HCl 20 mg 09/30/17 04:48 09/30/17 04:54 Bentyl PO 09/30/17 04:49 20 mg ONETIME ONE Administration Hydromorphone HCl 0.5 mg 09/30/17 04:26 09/30/17 04:39 Dilaudid IVPUSH 09/30/17 04:27 0.5 mg ONETIME ONE Administration Lactated Ringer's 1,000 mls @ 999 mls/hr 09/30/17 04:30 09/30/17 04:39 Ringers, Lactated IV 999 mls/hr .BOLUS ALEKSANDAR Administration Iopamidol 125 ml 09/30/17 06:54 09/30/17 07:34 Isovue-300 (61%) IVPUSH 09/30/17 06:55 125 ml ONETIME ONE Administration Levothyroxine Sodium 100 mcg 10/01/17 06:00 Synthroid PO ACBREAKFAST ALEKSANDAR Lorazepam 1 mg 09/30/17 04:50 09/30/17 04:54 Ativan IVPUSH 09/30/17 04:51 1 mg ONETIME ONE Administration Metoclopramide HCl 7.5 mg 09/30/17 04:26 09/30/17 04:39 Reglan IVPUSH 09/30/17 04:27 7.5 mg ONETIME ONE Administration - Radiology Interpretation Free Text/Narrative:: 76-year-old female presents to the ED per ambulance after she called them due to intractable nausea and vomiting and reported large-volume watery stool loss per rectum since about 1900 hrs. last evening. She complains of chills with no definitive fever. She does not believe she got into any bad food. Further to the history is that she was seen through the ED on the of this month after an intentional overdose of narcotics which she was taking on a daily basis for chronic pain syndrome. She had taken 90 mg of hydrocodone 7.5/200 mg tablets in an effort to provide a lethal dose change her life. She expressed an unequivocal wish to be and to go to [facility] to be with Tino. Initial dose did not do the trick and therefore she took an extra 24 mg or 4 tablets later the same day without any dramatic effect. She was seen through the ED and after discussion with psychiatrist in [place] it was elected that she should stay in the hospital here overnight for monitoring purposes and then be transferred the following day for psychiatric evaluation. She was identified to be significantly hypothyroid with a TSH of 12.23. Patient is been very difficult to manage in the past by her primary care providers as she prefers to take over- the-counter medications inset of prescription medications. She states that she has a problem with excessive iron overload or hemochromatosis ,adrenal insufficiency and hypothyroidism. Patient appears to been discharged from [place] yesterday. Many of her signs and symptoms may well be that of narcotic withdrawal. I acute onset of nausea vomiting and diarrhea. No further history was obtained after initial orders were written for IV fluids dictated Ringer's at open. Reglan 7.5 mg IV to arrest vomiting and Dilaudid 0.5 mg IV for relief of abdominal cramping pain. Routine labs were also ordered. I will also provide her now with Bentyl 20 mg by mouth and effort to relieve abdominal cramping pain and ease diarrhea. - Re-Assessments/Exams Free Text/Narrative Re-Assessment/Exam: 09/30/17 05:43 Labs reveal a normal white count at 9.57 with 72% neutrophils and no bands. Hemoglobin is 16.0 with hematocrit of 45.4. This may suggest mild hemoconcentration. Platelet count is normal at 144,000. Sodium 140 potassium slightly low at 3.4. Toward 102 bicarbonate 28. Anion gap is 13.4. BUN is 14 creatinine is 0.7. BUN/creatinine ratio is 20. Glucose is 112. Calcium 10.1. Magnesium is low normal at 1.8 serum ferritin is normal at 114. Total bilirubin is 0.5 AST is 24 ALT is 30 40 evidence of acetaminophen induced liver toxicity. C-reactive protein is less than 0.2. Lipase is elevated at 658. I.e. does have mild pancreatitis. Urinalysis is negative for infection. Urine drug screen is completely negative. Labs reveal that the patient does have a mild pancreatitis which explains her abdominal pain and perhaps recurrent vomiting. The cause of the pancreatitis is inconclusive. Patient has had previous cholecystectomy. There are no signs of biliary duct obstruction. Medication may be high the last visit cause of pancreatitis. For list of her medications provided her almost all that of vitamins and supplements. The only medication listed is levothyroxine 100 g per day. There are no antidepressants listed either. Patient will likely require admission to hospital at least on observational basis for IV fluid replacement and to make sure she stops having nausea and vomiting. She is currently sleeping quite well. 09/30/17 06:[address] Cavazos-- director education hospitalist and also Rocio Mac director education hospitalist CORBY in regards to potential admission to the hospital for at least observation due to mild pancreatitis and intractable nausea and vomiting. The cause of her pancreatitis remains elusive although it may well be due to excessive ibuprofen that she ingested on in a formal bed overdose. Most of her other medications are [id number]-sxvdqno supplements. I did not find anything obvious that should be causing pancreatitis and from what I can understand she's been on all of these over-the- counter medications for a lengthy period of time. She's had previous cholecystectomy. To my knowledge she is not an alcoholic. I've sent for the records from discharge from [facility] where she went for psychiatric evaluation and was discharged yesterday. They have not yet arrived. She whether she was placed on other medications well at that institution that may have precipitated pancreatitis. Patient has had no further nausea vomiting or diarrhea since admitted to the ED. we'll have CT of the abdomen performed with IV contrast only as I do not believe she can keep down oral contrast at this time. Will be done to see if it's sheds any light on the potential cause of pancreatitis. She's completed a liter of Ringer's lactate and He will be D5 normal saline with 20mEq of KCL - per liter to run at 125 mils per hour. H. pylori antibody was negative as well. Departure - Departure Time of Disposition: 06:45 Disposition: Refer to Observation Condition: Fair Clinical Impression: Abdominal pain Intractable nausea and vomiting Qualifiers: Vomiting type: unspecified Qualified Code(s): R11.2 - Nausea with vomiting, unspecified Acute pancreatitis Qualifiers: Pancreatitis type: idiopathic Acute pancreatitis complication: unspecified Qualified Code(s): K85.00 - Idiopathic acute pancreatitis without necrosis or infection - Discharge Information - My Orders Last 24 Hours: My Active Orders 09/30/17 06:38 Admission Status [Patient Status] [ADT] Routine 09/30/17 06:45 Dextrose 5%-0.9% NaCl with KCl [D5 NS with 20 mEq KCl] 1,000 ml IV ASDIRECTED - Assessment/Plan Last 24 Hours: My Active Orders 09/30/17 06:38 Admission Status [Patient Status] [ADT] Routine 09/30/17 06:45 Dextrose 5%-0.9% NaCl with KCl [D5 NS with 20 mEq KCl] 1,000 ml IV ASDIRECTED
[2017-09-30] MEDS ORDERED: Lactated Ringers 1,000 ML IV SCH (04:30)
[2017-09-30] MEDS ORDERED: Dicyclomine 10 MG Cap PO ONE (04:48)
[2017-09-30] MEDS ORDERED: LORazepam 2 MG/ML SDV IVPUSH ONE (04:50)
[2017-09-30] MEDS ORDERED: Iopamidol 612 MG/ML 150 ML Bottle IVPUSH ONE (06:54)
[2017-09-30] MEDS ORDERED: Sodium Chloride 0.9% 10 ML Syringe FLUSH PRN (06:54)
[2017-09-30] MEDS ORDERED: Ondansetron 4 MG Tab.DIS PO PRN (07:19)
[2017-09-30] MEDS ORDERED: Ondansetron 4 MG/2 ML SDV IV PRN (07:19)
--- NOTE | 2017-09-30 07:31 | PCM.HP ---
H&P History of Present Illness - General Date of Service: 09/30/17 Admit Problem/Dx: Admission Diagnosis/Problem Admission Diagnosis/Problem Acute pancreatitis Source of Information: Patient, Other (ED notes and provider) History Limitations: Reports: No Limitations - History of Present Illness Initial Comments - Free Text/Narative: Snehal is a 76-year-old female who presented to the ED in the early childhood director hours via ambulance with abdominal pain/cramping, intractable nausea vomiting and diarrhea starting at approximately 7 PM the night of admission. She reported abdominal pain and cramping associated with the vomiting and diarrhea. Denies hematemesis, hematochezia or melena. She has had cholecystectomy years ago. She was discharged from [facility] the day prior after a suicide attempt with narcotic pain medications. This attempt occurred on September 26; she was admitted to our hospital for 1 day and then discharged to [facility] for inpatient treatment. She reports to ED staff that she was given magnesium for constipation prior to DC at [facility]; after taking that the diarrhea has been persistent. No concerns for "bad food", no other sick contacts. Currently there is concern for withdrawal as patient had been on chronic opioid therapy which has been discontinued since suicide attempt ; since getting Dilaudid in the ED she has settled down and is resting quite comfortably. Patient reports she has chronic back pain for which she was previously prescribed pain medications for year. Upon my examination the emergency department she is resting comfortably, sleeping in fact, but is easy to arouse. States she has absolutely no abdominal pain or cramping at this time and since getting the medication she has been able to sleep and rest comfortably. She tells me she has not slept for 48 hours and feels rested now that she has gotten some sleep. She has had hot flashes and sweats but denies fevers or chills. Denies chest pain shortness of breath palpitations headache or syncope. She currently denies suicidal ideation but when I do ask about CODE STATUS she states "please just let me go I've lived long enough". Apparently she told the EMS personnel that she was deaf however she has no trouble hearing me at my normal voice dB today. Please see Dr. Rollins's ER notes and documentation for extensive synopsis of recent psychiatric admission. Past medical history is significant for asthma osteoarthritis degenerative joint and degenerative disc disease of the back, hypothyroidism noncompliance with medications is suspected, TSH was drawn on 09/26 and was elevated at 12.2; self-reported, self-diagnosed and homeopathic treatment for breast cancer which she states is cured. 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 She takes a multitude of supplements and over-the -counter medications. Depression with recent suicide attempt 4 days ago; no antidepressants or other psychotropic medications are listed on her current medication list. ER evaluation is with CBC showing normal white count of 9.57 hemoglobin and hematocrit elevated at 16.0 and 45.4 respectively, platelets slightly low at 144. Metabolic panel is with a potassium of 3.4 other electrolytes within normal limits including magnesium at 1.8. BUN/creatinine normal. Glucose 112, liver function tests are all within normal limits. CRP is less than 0.2. Lipase level is slightly elevated at 658. Ferritin level was also checked and is normal at 114. Urinalysis is unremarkable, urine drug screen is negative. ED has requested discharge notes from [facility] with patient release signed. Awaiting those records. Hospitalist service is consulted for admission for acute pancreatitis with n/v/ d and abd pain. Patient is DNR/DNI CODE STATUS. Onset of Symptoms: Reports: Sudden Duration of Symptoms: Reports: Other (7pm last evening with n/v/d and abdominal pain) Location: Reports: Abdomen Quality: Reports: Burning, Sharp, Stabbing Severity: Severe (when abd pain occurs it is severe) Improves with: Reports: None Worsens with: Reports: None Context: Reports: Other (discharged from [facility] yesterday to home). Denies: Sick Contact, Activity/Exercise, Lifting, Exertion, Trauma Associated Symptoms: Reports: Loss of Appetite, Nausea/Vomiting, Weakness, Other ("hot flashes"). Denies: Confusion, Chest Pain, Cough, Diaphoresis, Shortness of Breath, Syncope Abdominal Pain Score (Numeric/FACES): 5 - Related Data Allergies/Adverse Reactions: Allergies Allergy/AdvReac Type Severity Reaction Status Date / Time No Known Allergies Allergy Verified 09/30/17 04:25 Home Medications: Home Meds Amino Acids [Amino Acid] 1 each PO DAILY 09/26/17 [History] Ascorbic Acid [C-1000] 1,000 mg PO DAILY 09/26/17 [History] Calcium Carbonate/Vitamin D3 [Calcium Carbonate/Vitamin D 1250 MG-200 Unit] 1 tab PO BIDMEALS 09/26/17 [History] Cholecalciferol (Vitamin D3) [Vitamin D3] 10,000 unit PO DAILY 09/26/17 [History ] Digestive 8/L.acidoph/Pectin [Digestive Enzymes Tablet] 1 each PO DAILY [History] [place] 150 mg PO TID 09/26/17 [History] Magnesium 200 mg PO DAILY 09/26/17 [History] Milk Thistle 1 gm MC DAILY 09/26/17 [History] Polyvinyl Alcohol/Povidone/Pf [Refresh Classic Eye Drops] 1 drop DAILY 09/26/17 [History] Potassium Citrate [Potassium Citrate ER] 5 meq PO DAILY 09/26/17 [History] Selenium 200 mcg PO DAILY 09/26/17 [History] Vit A/Vit C/Vit E/Zinc/Copper [Preservision] 1 each PO DAILY 09/26/17 [History] Vitamin B Complex [B Complex] 1 each PO DAILY 09/26/17 [History] Vitamin E Acetate [Vitamin E] 400 unit PO DAILY 09/26/17 [History] Zinc 22.5 mg PO DAILY 09/26/17 [History] Levothyroxine 112 mcg PO ACBREAKFAST 09/30/17 [History] traMADol [Ultram] 50 mg PO BEDTIME 09/30/17 [History] traMADol [Ultram] 50 mg PO Q6H PRN 09/30/17 [History] Past Medical History HEENT History: Reports: Hard of Hearing, Impaired Vision Respiratory History: Reports: Asthma Gastrointestinal History: Reports: None Genitourinary History: Reports: None 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 TSH when checked on the of this month was 12.2 indicating she is not taking appropriate replacement therapy. 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 She takes a multitude of iruj-bmq-vleemij medications to correct these imbalances.) Oncologic (Cancer) History: Reports: Breast, Other (See Below) Other Oncologic History: left breast cancer--pt states that this is self diagnosed - Infectious Disease History Infectious Disease History: Reports: Chicken Pox, Measles, Mumps - Past Surgical History HEENT Surgical History: Reports: Cataract Surgery Respiratory Surgical History: Reports: None GI Surgical History: Reports: Cholecystectomy, Colonoscopy Female Surgical History: Reports: Hysterectomy, Oophorectomy Musculoskeletal Surgical History: Reports: Other (See Below) Other Musculoskeletal Surgeries/Procedures:: left harry fx. Dermatological Surgical History: Reports: None Social & Family History - Family History Oncologic: Reports: Bone, Lymphoma, Prostate - Tobacco Use Smoking Status *Q: Never Smoker Second Hand Smoke Exposure: No - Caffeine Use Caffeine Use: Reports: None - Recreational Drug Use Recreational Drug Use: No - Living Situation & Occupation Living situation: Reports: , Alone Occupation: Retired H&P Review of Systems - Review of Systems: Review Of Systems: See Below General: Reports: Chills, Weakness, Fatigue, Diaphoresis, Decreased Appetite. Denies: Fever HEENT: Reports: No Symptoms Pulmonary: Reports: No Symptoms. Denies: Shortness of Breath, Cough Cardiovascular: Reports: No Symptoms. Denies: Chest Pain, Palpitations, Lightheadedness Gastrointestinal: Reports: Abdominal Pain, Constipation (had been constipated the past week but was given magnesium at [facility] to help her go--resolved now), Diarrhea, Decreased Appetite, Nausea, Vomiting. Denies: Black Stool, Bloody Stool, Hematemesis, Hematochezia, Melena Genitourinary: Reports: No Symptoms Musculoskeletal: Reports: Back Pain (chronic--DDD,DJD) Skin: Reports: No Symptoms Psychiatric: Reports: Depression, Mood Lability, Suicidal Ideation (recent suicide attempt on 09/26/17- was hospitalized overnight here then to [facility] until yesterday for inpatient treatment), Other (currently is pleasant and appropriate ). Denies: Hallucinations, Homicidal Ideation Neurological: Reports: No Symptoms Exam - Exam Exam: See Below - Vital Signs Vital Signs: Last Vital Signs Temp 96.8 F 09/30/17 04:20 Pulse 58 L 09/30/17 04:20 Resp 16 09/30/17 04:20 BP 165/74 H 09/30/17 04:20 Pulse Ox 95 09/30/17 04:20 Weight: 150 lb - Exam General: Alert, Oriented, Cooperative, Other (resting very comfortably on ER stretcher. States she has been sleeping and "it feels so good to sleep, I haven' t slept for 2 days". Denies c/o abd pain or nausea at time of my exam) HEENT: Conjunctiva Clear, EOMI, Hearing Intact, Pupils Equal. No: Mucosa Moist & [place] (dry) Neck: Supple, Trachea Midline Lungs: Clear to Auscultation, Normal Respiratory Effort Cardiovascular: Regular Rate, Regular Rhythm, Normal S1, Normal S2 GI/Abdominal Exam: Normal Bowel Sounds, Soft, Non-Tender, No Organomegaly. No: Guarding, Rigid, Rebound, Tender (Female) Exam: Deferred Rectal (Female) Exam: Deferred Back Exam: Normal Inspection Extremities: Normal Inspection, No Pedal Edema, Normal Capillary Refill Peripheral Pulses: 2+: Radial (L), Radial (R), Dorsalis Pedis (L), Dorsalis Pedis (R) Skin: Warm, Dry, Intact Neurological: Cranial Nerves Intact Neuro Extensive - Mental Status: Alert, Oriented x3, Normal Mood/Affect, Normal Cognition, Memory Intact Psychiatric: Alert, Normal Affect, Normal Mood, Other (pleasant and talkative, very appropriate) - Patient Data Result Diagrams: 09/30/17 04:30 09/30/17 04:30 *Q Meaningful Use (ADM) - VTE *Q VTE Criteria *Q: - Stroke *Q Stroke Criteria *Q: - AMI *Q AMI Criteria *Q: - Problem List (1) Acute pancreatitis SNOMED Code(s): 941950907 ICD Code: K85.90 - ACUTE PANCREATITIS WITHOUT NECROSIS OR INFECTION, UNSP Status: Acute Priority: High Current Visit: Yes Qualifiers: Pancreatitis type: idiopathic Acute pancreatitis complication: unspecified Qualified Code(s): K85.00 - Idiopathic acute pancreatitis without necrosis or infection (2) Abdominal pain SNOMED Code(s): 43658316 ICD Code: R10.9 - UNSPECIFIED ABDOMINAL PAIN Status: Acute Priority: High Current Visit: Yes (3) Intractable nausea and vomiting SNOMED Code(s): 949225772 ICD Code: R11.2 - NAUSEA WITH VOMITING, UNSPECIFIED Status: Acute Priority: High Current Visit: Yes Qualifiers: Vomiting type: unspecified Qualified Code(s): R11.2 - Nausea with vomiting , unspecified (4) Depression SNOMED Code(s): 08225430 ICD Code: F32.9 - MAJOR DEPRESSIVE DISORDER, SINGLE EPISODE, UNSPECIFIED Status: Acute Priority: High Current Visit: Yes Qualifiers: Depression Type: major depressive disorder Major depression recurrence: single episode Active/Remission status: currently active Psychotic features : without psychotic features (5) Chronic pain syndrome SNOMED Code(s): 294508428 ICD Code: G89.4 - CHRONIC PAIN SYNDROME Status: Chronic Priority: Medium Current Visit: Yes (6) Hypothyroidism SNOMED Code(s): 89182183 ICD Code: E03.9 - HYPOTHYROIDISM, UNSPECIFIED Status: Chronic Priority: Low Current Visit: Yes Qualifiers: Hypothyroidism type: unspecified Qualified Code(s): E03.9 - Hypothyroidism , unspecified Problem List Initiated/Reviewed/Updated: Yes Orders Last 24hrs: Active Orders 24 hr Category Date Time Status Patient Status [ADT] Routine ADT 09/30/17 07:20 Ordered Ambulate [RC] QSHIFT Care 09/30/17 07:19 Ordered Antiembolic Devices [RC] PER UNIT ROUTINE Care 09/30/17 07:21 Ordered Cardiac Monitoring [RC] CONTINUOUS Care 09/30/17 07:21 Ordered Height and Weight [RC] DAILY Care 09/30/17 07:19 Ordered Intake and Output [RC] QSHIFT Care 09/30/17 07:21 Ordered Oxygen Therapy [RC] PRN Care 09/30/17 07:20 Ordered Up With Assistance [RC] ASDIRECTED Care 09/30/17 07:19 Ordered VTE/DVT Education [RC] PER UNIT ROUTINE Care 09/30/17 07:20 Ordered Vital Signs [RC] Q4H Care 09/30/17 07:20 Ordered Consult to Sister Superior [CONS] Routine Cons 09/30/17 07:19 Ordered Nothing per Oral Now Diet [DIET] Diet 09/30/17 Lunch Ordered BASIC METABOLIC PANEL,BMP [CHEM] AM Lab 10/01/17 05:11 Ordered C-REACTIVE PROTEIN [CHEM] AM Lab 10/01/17 05:11 Ordered CBC WITH AUTO DIFF [HEME] AM Lab 10/01/17 05:11 Ordered HELICOBACTER PYLORI AB IGG [CHEM] Routine Lab 09/30/17 07:25 Ordered LIPID PANEL [CHEM] Routine Lab 09/30/17 07:25 Ordered MAGNESIUM [CHEM] AM Lab 10/01/17 05:11 Ordered Acetaminophen/HYDROcodone [[place]den 325-5 MG] Med 09/30/17 07:19 Ordered 1 tab PO Q4H PRN Digestive 8/L.acidoph/Pectin [Digestive Enzymes Tablet] Med 09/30/17 09:00 Ordered 1 each PO DAILY Famotidine [Pepcid] Med 09/30/17 09:00 Ordered 20 mg IVPUSH BID HYDROmorphone [Dilaudid] Med 09/30/17 07:19 Ordered 0.5 mg IVPUSH Q2H PRN LORazepam [Ativan] Med 09/30/17 07:19 Ordered 0.5 mg IV Q6H PRN Levothyroxine [Synthroid] Med 10/01/17 06:00 Ordered 100 mcg PO ACBREAKFAST Ondansetron [Zofran ODT] Med 09/30/17 07:19 Ordered 4 mg PO Q4H PRN Ondansetron [Zofran] Med 09/30/17 07:19 Ordered 4 mg IV Q4H PRN Polyvinyl Alcohol/Povidone/Pf [Refresh Classic Eye Med 09/30/17 09:00 Ordered Drops] 1 drop EYEBOTH DAILY Sodium Chloride 0.9% [Saline Flush] Med 09/30/17 06:54 Active 10 ml FLUSH ONETIME PRN Temazepam [Restoril] Med 09/30/17 07:19 Ordered 7.5 mg PO BEDTIME PRN Antiembolic Hose [OM.PC] Per Unit Routine Oth 09/30/17 07:21 Ordered Resuscitation Status Routine Resus Stat 09/30/17 07:19 Ordered Medication Orders Potassium Chloride/Dextrose/Sod Cl (D5 Ns With 20 Meq Kcl) 1,000 mls @ 125 mls/ hr IV ASDIRECTED ALEKSANDAR Levothyroxine Sodium (Synthroid) 100 mcg PO ACBREAKFAST ALEKSANDAR Non-Formulary Medication (Polyvinyl Alcohol/Povidone/Pf [Refresh Classic Eye Drops]) 1 drop EYEBOTH DAILY ALEKSANDAR Saccharomyces Boulardii (Florastor) 250 mg PO DAILY ALEKSANDAR Sodium Chloride (Saline Flush) 10 ml FLUSH ONETIME PRN PRN Reason: IV Flush Assessment/Plan Comment:: I/P: Mild Acute pancreatitis with nausea/vomiting/abdominal pain--etiology idiopathic at this time. -Lipase 658 -WBC and LFT's WNL. UA and UDS WNL/negative. H.Pylori negative. -CRP negative, <0.2 -CT of abd obtained in ED: concerns for mild ileus or mild enteritis, otherwise negative for acute findings or pancreatic inflammation. -Risk factors: recent OD of vicoprofen 4 days ago. Patient takes lots of OTC supplements. Ransons Criteria: incomplete as no LDH but without LDH included is 1% mortality= very low risk -Cholesterol with triglycerides WNL. -Cholecystectomy years ago and with Normal LFT's. -UDS negative, non-drinker -Hydrate with IVF -NPO x ice chips--> advance later today -Pepcid BID, avoid PPI with acute pancreatitis Mild Hypokalemia -Replace and monitor -Follow magnesium; normal today -- would expect to be low with n/v/d intractable Recent suicide attempt with OD of vicoprofen on 09/26/17 -Was hospitalized overnight for medical clearance here at [facility], discharged to [facility] for inpatient treatment the following day 09/27/17 and discharged yesterday 09/29/17. -Obtain notes/discharge paperwork from [facility], patient signed release and ED requested records for review -No new antidepressant or psychotropic mediations on mediation list or that patient states are new. ? Withdrawl syndrome- opioid medications -care home narcotic use for chronic LBP; last taken in OD on 09/26/17 -Acute onset n/v/d, abd cramping with essentially normal labs other than mildly elevated Lipase level with almost immediate improvement of symptoms when given dilaudid and ativan in ED -CIWAA scale with ativan protocol to monitor Chronic: Hypothyroidism- TSH 12.26 with FT4 of 1.07 on 09/26/17-- suspect noncompliance with medications at that time, cont current levothyroxine dose--recommend recheck TSH/FT4 in 2 months with PCP. Other: Transfer to observation status DVT/GI prophylax SW consult for assist with arranging psych and counseling at discharge Ambulate Advance diet once pain controlled Likely DC in 24 hours Patient is DNR/DNI code status.
--- NOTE | 2017-09-30 07:46 | CT ---
CT abdomen and pelvis Technique: Multiple axial sections were obtained from above the dome of the diaphragm inferiorly through the pubic symphysis. Intravenous contrast was utilized. No oral contrast has been given. Comparison: No previous abdominal imaging. Findings: Small portion of the visualized lung bases are clear. Liver shows no focal parenchymal abnormality. Surgical clips are seen from prior cholecystectomy. Spleen appears within normal limits. Adrenal glands show no nodule. Pancreas appears normal. Kidneys show symmetric contrast enhancement without hydronephrosis or mass. Small cysts are seen within both kidneys. Aorta shows atherosclerotic change which continues into the iliac vessels. No aneurysm is identified. No retroperitoneal adenopathy or mesenteric abnormalities are seen. No pelvic mass or adenopathy is identified. Delayed images show contrast excretion into both ureters and within the bladder. Prominent size of several small bowel loops are seen and difficult to exclude an ileus or mild enteritis. No inflammatory changes seen. Appendix is within normal limits. Bone window settings were reviewed which show spondylolisthesis at L4-L5 due to degenerative apophyseal change. Disc space narrowing at L4-L5 with vacuum phenomena. Lesser disc space narrowing at L5-S1 with vacuum phenomena. Lesser degenerative changes scattered throughout other portions of the spine. Impression: 1. Prominent size of several small bowel loops which may represent an ileus or mild enteritis. 2. Other incidental findings as noted above. Nothing acute is otherwise seen. Diagnostic code #3
[2017-09-30] MEDS: Famotidine 20 MG/2 ML SDV IVPUSH SCH ×2 (08:44→20:45)
[2017-09-30] MEDS: Dextrose 5%-0.9% NaCl with KCl 1,000 ML IV SCH ×2 (08:50→16:36)
[2017-09-30] MEDS: Saccharomyces Boulardii (Probiotic) 250 MG Cap PO SCH (08:53)
[2017-09-30] MEDS: Hypromellose 0.5% Ophth Soln 15 ML Bottle EYEBOTH SCH (08:53)
[2017-09-30] MEDS: HYDROmorphone 0.5 MG/0.5 ML Syringe IVPUSH PRN ×2 (09:01→16:25)
[2017-09-30] MEDS ORDERED: Dicyclomine 10 MG Cap PO PRN (12:07)
[2017-09-30] MEDS: LORazepam 2 MG/ML SDV PRN (20:58)
[2017-09-30] MEDS: Temazepam 7.5 MG Cap PO PRN (21:00)
[2017-10-01] MEDS: Dextrose 5%-0.9% NaCl with KCl 1,000 ML IV SCH ×3 (01:47→19:32)
[2017-10-01] MEDS: HYDROmorphone 0.5 MG/0.5 ML Syringe IVPUSH PRN (04:02)
[2017-10-01] MEDS: Levothyroxine 112 MCG Tab PO SCH (05:45)
[2017-10-01] MEDS ORDERED: Levothyroxine 100 MCG Tab PO SCH (06:00)
[2017-10-01] MEDS ORDERED: Magnesium Sulfate/Water 2 GM in Premix Bag 1 BAG IV ONE (09:00)
[2017-10-01] MEDS: Hypromellose 0.5% Ophth Soln 15 ML Bottle EYEBOTH SCH (09:09)
[2017-10-01] MEDS: Saccharomyces Boulardii (Probiotic) 250 MG Cap PO SCH (09:09)
[2017-10-01] MEDS: Famotidine 20 MG/2 ML SDV IVPUSH SCH ×2 (09:10→20:11)
[2017-10-01] MEDS ORDERED: Loperamide 2 MG Cap PO ONE (09:32)
[2017-10-01] MEDS: LORazepam 2 MG/ML SDV PRN ×2 (09:47→15:00)
[2017-10-01] MEDS: Acetaminophen/HYDROcodone 325-5 MG Tab PO PRN ×3 (09:53→22:43)
--- NOTE | 2017-10-01 11:52 | PCM.PN ---
- General Info Date of Service: 10/01/17 Functional Status: Reports: Pain Controlled - Review of Systems General: Reports: No Symptoms HEENT: Reports: No Symptoms Pulmonary: Reports: No Symptoms Cardiovascular: Reports: No Symptoms Gastrointestinal: Reports: No Symptoms Genitourinary: Reports: No Symptoms Musculoskeletal: Reports: No Symptoms Skin: Reports: No Symptoms Neurological: Reports: No Symptoms Psychiatric: Reports: No Symptoms - Patient Data Vitals - Most Recent: Last Vital Signs Temp 36.6 C 10/01/17 09:17 Pulse 57 L 10/01/17 09:17 Resp 16 10/01/17 09:17 BP 144/76 H 10/01/17 09:17 Pulse Ox 96 10/01/17 09:17 Weight - Most Recent: 67.857 kg I&O - Last 24 Hours: Intake & Output 09/30/17 10/01/17 10/01/17 22:59 06:59 14:59 Intake Total 1304 1582 Output Total 300 850 Balance 1004 732 Lab Results Last 24 Hours: Laboratory Results - last 24 hr 10/01/17 10/01/17 Range/Units 05:48 05:48 WBC 6.79 (3.98-10.04) K/mm3 RBC 4.39 (3.98-5.22) M/mm3 Hgb 14.5 (11.2-15.7) gm/L Hct 41.6 (34.1-44.9) % MCV 94.8 (79.4-94.8) fl MCH 33.0 H (25.6-32.2) pg MCHC 34.9 (32.2-35.5) g/dl RDW Std Deviation 40.3 (36.4-46.3) fL Plt Count 125 L (182-369) K/mm3 MPV 10.3 (9.4-12.3) fl Neut % (Auto) 62.4 (34.0-71.1) % Lymph % (Auto) 27.1 (19.3-51.7) % [place] % (Auto) 8.2 (4.7-12.5) % Eos % (Auto) 1.9 (0.7-5.8) Baso % (Auto) 0.3 (0.1-1.2) % Neut # (Auto) 4.23 (1.56-6.13) K/mm3 Lymph # (Auto) 1.84 (1.18-3.74) K/mm3 [place] # (Auto) 0.56 H (0.24-0.36) K/mm3 Eos # (Auto) 0.13 (0.04-0.36) K/mm3 Baso # (Auto) 0.02 (0.01-0.08) K/mm3 Sodium 146 H (136-145) mEq/L Potassium 4.3 (3.5-5.1) mEq/L Chloride 113 H (98-107) mEq/L Carbon Dioxide 26 (21-32) mEq/L Anion Gap 11.3 (5-15) BUN 6 L (7-18) mg/dL Creatinine 0.6 (0.55-1.02) mg/dL Est Cr Clr Drug Dosing 68.88 mL/min Estimated GFR (MDRD) > 60 (>60) mL/min BUN/Creatinine Ratio 10.0 L (14-18) Glucose 114 (83-115) mg/dL Calcium 7.9 L (8.5-10.1) mg/dL Magnesium 1.5 L (1.8-2.4) mg/dl C-Reactive Protein < 0.2 (<1.0) mg/dL Lipase 473 H (73-393) U/L Med Orders - Current: Current Medications Hydrocodone Bitart/Acetaminophen ([place] 325-5 Mg) 1 tab PO Q4H PRN PRN Reason: Pain (moderate 4-6) Last Admin: 10/01/17 09:53 Dose: 1 tab Artificial Tears (Isopto Tears 0.5% Ophth Soln) 0 ml EYEBOTH DAILY [facility] Last Admin: 10/01/17 09:09 Dose: 1 drop Dicyclomine HCl (Bentyl) 10 mg PO QIDACANDBED PRN PRN Reason: abd pain/cramping Famotidine (Pepcid) 20 mg IVPUSH BID [facility] Last Admin: 10/01/17 09:10 Dose: 20 mg Hydromorphone HCl (Dilaudid) 0.5 mg IVPUSH Q2H PRN PRN Reason: Pain (severe 7-10) Last Admin: 10/01/17 04:02 Dose: 0.5 mg Potassium Chloride/Dextrose/Sod Cl (D5 Ns With 20 Meq Kcl) 1,000 mls @ 125 mls/ hr IV ASDIRECTED [facility] Last Admin: 10/01/17 11:14 Dose: 125 mls/hr Levothyroxine Sodium (Levothyroxine) 112 mcg PO ACBREAKFAST [facility] Last Admin: 10/01/17 05:45 Dose: 112 mcg Lorazepam (Ativan) 0.5 mg IV Q6H PRN PRN Reason: Nausea/Vomiting--restlessness Lorazepam (Ativan) 0 mg .XX Q4H PRN; Protocol PRN Reason: CIWAA scale Last Admin: 10/01/17 09:47 Dose: 1 mg Magnesium Sulfate (Pharmacy To Dose - Magnesium Replacement) 1 dose .XX ASDIRECTED [facility] Ondansetron HCl (Zofran Odt) 4 mg PO Q4H PRN PRN Reason: nausea, able to take PO Ondansetron HCl (Zofran) 4 mg IV Q4H PRN PRN Reason: Nausea/Vomiting Potassium Chloride (Pharmacy To Dose - Potassium Replacement) 1 dose .XX ASDIRECTED [facility] Saccharomyces Boulardii (Florastor) 250 mg PO DAILY [facility] Last Admin: 10/01/17 09:09 Dose: 250 mg Sodium Chloride (Saline Flush) 10 ml FLUSH ONETIME PRN PRN Reason: IV Flush Temazepam (Restoril) 7.5 mg PO BEDTIME PRN PRN Reason: Sleep Last Admin: 09/30/17 21:00 Dose: 7.5 mg Discontinued Medications Dicyclomine HCl (Bentyl) 20 mg PO ONETIME ONE Stop: 09/30/17 04:49 Last Admin: 09/30/17 04:54 Dose: 20 mg Hydromorphone HCl (Dilaudid) 0.5 mg IVPUSH ONETIME ONE Stop: 09/30/17 04:27 Last Admin: 09/30/17 04:39 Dose: 0.5 mg Lactated Ringer's (Ringers, Lactated) 1,000 mls @ 999 mls/hr IV .BOLUS [facility] Last Admin: 09/30/17 04:39 Dose: 999 mls/hr Magnesium Sulfate 2 gm/ Premix 50 mls @ 25 mls/hr IV ONETIME ONE Stop: 10/01/17 10:59 Last Admin: 10/01/17 09:15 Dose: 25 mls/hr Iopamidol (Isovue-300 (61%)) 125 ml IVPUSH ONETIME ONE Stop: 09/30/17 06:55 Last Admin: 09/30/17 07:34 Dose: 125 ml Levothyroxine Sodium (Synthroid) 100 mcg PO ACBREAKFAST [facility] Loperamide HCl (Imodium) 4 mg PO ONETIME ONE Stop: 10/01/17 09:33 Last Admin: 10/01/17 09:53 Dose: 4 mg Lorazepam (Ativan) 1 mg IVPUSH ONETIME ONE Stop: 09/30/17 04:51 Last Admin: 09/30/17 04:54 Dose: 1 mg Metoclopramide HCl (Reglan) 7.5 mg IVPUSH ONETIME ONE Stop: 09/30/17 04:27 Last Admin: 09/30/17 04:39 Dose: 7.5 mg - Exam Quality Assessment: DVT Prophylaxis General: Alert, Oriented, No Acute Distress HEENT: Pupils Equal, Pupils Reactive, EOMI Neck: Supple, Trachea Midline Lungs: Normal Respiratory Effort Cardiovascular: Regular Rate GI/Abdominal Exam: Normal Bowel Sounds, Soft, Non-Tender, No Organomegaly, No Distention (Female) Exam: Deferred Back Exam: Normal Inspection Extremities: Normal Inspection Skin: Warm Neurological: No New Focal Deficit Psy/Mental Status: Alert, Anxious - Problem List Review Problem List Initiated/Reviewed/Updated: Yes - Plan Plan:: I/P: Mild Acute pancreatitis with nausea/vomiting/abdominal pain--etiology idiopathic at this time. -Lipase 658 -WBC and LFT's WNL. UA and UDS WNL/negative. H.Pylori negative. -CRP negative, <0.2 -CT of abd obtained in ED: concerns for mild ileus or mild enteritis, otherwise negative for acute findings or pancreatic inflammation. -Risk factors: recent OD of vicoprofen 4 days ago. Patient takes lots of OTC supplements. Ransons Criteria: incomplete as no LDH but without LDH included is 1% mortality= very low risk -Cholesterol with triglycerides WNL. -Cholecystectomy years ago and with Normal LFT's. -UDS negative, non-drinker -Hydrate with IVF -NPO x ice chips--> advance as tolerated -Pepcid BID, avoid PPI with acute pancreatitis Mild Hypokalemia -Replace and monitor -Follow magnesium; normal today -- would expect to be low with n/v/d intractable Recent suicide attempt with OD of vicoprofen on 09/26/17 -Was hospitalized overnight for medical clearance here at [facility], discharged to [facility] for inpatient treatment the following day 09/27/17 and discharged yesterday 09/29/17. -Obtain notes/discharge paperwork from [facility], patient signed release and ED requested records for review -No new antidepressant or psychotropic mediations on mediation list or that patient states are new. ? 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 Other: Transfer to observation status DVT/GI prophylax SW consult for assist with arranging psych and counseling at discharge Ambulate Advance diet to clear liquids Follow up labs Patient is DNR/DNI code status.
[2017-10-01] MEDS: Temazepam 7.5 MG Cap PO PRN (22:43)
[2017-10-02] MEDS: Dextrose 5%-0.9% NaCl with KCl 1,000 ML IV SCH (03:45)
[2017-10-02] MEDS: LORazepam 2 MG/ML SDV PRN (05:51)
[2017-10-02] MEDS: Levothyroxine 112 MCG Tab PO SCH (05:51)
[2017-10-02] MEDS: Saccharomyces Boulardii (Probiotic) 250 MG Cap PO SCH (09:29)
[2017-10-02] MEDS: Hypromellose 0.5% Ophth Soln 15 ML Bottle EYEBOTH SCH (09:30)
[2017-10-02] MEDS: Famotidine 20 MG/2 ML SDV IVPUSH SCH ×2 (09:34→21:19)
[2017-10-02] MEDS: Acetaminophen/HYDROcodone 325-5 MG Tab PO PRN ×2 (09:50→16:29)
--- NOTE | 2017-10-02 14:06 | PCM.PN ---
- General Info Date of Service: 10/02/17 Functional Status: Reports: Pain Controlled, Tolerating Diet, Ambulating - Review of Systems General: Reports: No Symptoms HEENT: Reports: No Symptoms Pulmonary: Reports: No Symptoms Cardiovascular: Reports: No Symptoms Gastrointestinal: Reports: No Symptoms Genitourinary: Reports: No Symptoms Musculoskeletal: Reports: No Symptoms Skin: Reports: No Symptoms Neurological: Reports: Confusion Psychiatric: Reports: Confusion - Patient Data Vitals - Most Recent: Last Vital Signs Temp 36.8 C 10/02/17 11:27 Pulse 58 L 10/02/17 11:27 Resp 32 H 10/02/17 11:27 BP 142/70 H 10/02/17 11:27 Pulse Ox 95 10/02/17 11:27 Weight - Most Recent: 68.039 kg I&O - Last 24 Hours: Intake & Output 10/01/17 10/02/17 10/02/17 22:59 06:59 14:59 Intake Total 3692 2023 Output Total 2300 2750 Balance 1392 -727 Lab Results Last 24 Hours: Laboratory Results - last 24 hr 10/01/17 Range/Units 05:48 Ferritin 102 (8-252) ng/ml Med Orders - Current: Current Medications Hydrocodone Bitart/Acetaminophen ([place] 325-5 Mg) 1 tab PO Q4H PRN PRN Reason: Pain (moderate 4-6) Last Admin: 10/02/17 09:50 Dose: 1 tab Artificial Tears (Isopto Tears 0.5% Ophth Soln) 0 ml EYEBOTH DAILY [facility] Last Admin: 10/02/17 09:30 Dose: 1 drop Dicyclomine HCl (Bentyl) 10 mg PO QIDACANDBED PRN PRN Reason: abd pain/cramping Famotidine (Pepcid) 20 mg IVPUSH BID [facility] Last Admin: 10/02/17 09:34 Dose: 20 mg Hydromorphone HCl (Dilaudid) 0.5 mg IVPUSH Q2H PRN PRN Reason: Pain (severe 7-10) Last Admin: 10/01/17 04:02 Dose: 0.5 mg Levothyroxine Sodium (Levothyroxine) 112 mcg PO ACBREAKFAST [facility] Last Admin: 10/02/17 05:51 Dose: 112 mcg Lorazepam (Ativan) 0.5 mg IV Q6H PRN PRN Reason: Nausea/Vomiting--restlessness Lorazepam (Ativan) 0 mg .XX Q4H PRN; Protocol PRN Reason: CIWAA scale Last Admin: 10/02/17 05:51 Dose: 1 mg Magnesium Sulfate (Pharmacy To Dose - Magnesium Replacement) 1 dose .XX ASDIRECTED [facility] Ondansetron HCl (Zofran Odt) 4 mg PO Q4H PRN PRN Reason: nausea, able to take PO Ondansetron HCl (Zofran) 4 mg IV Q4H PRN PRN Reason: Nausea/Vomiting Potassium Chloride (Pharmacy To Dose - Potassium Replacement) 1 dose .XX ASDIRECTED [facility] Saccharomyces Boulardii (Florastor) 250 mg PO DAILY [facility] Last Admin: 10/02/17 09:29 Dose: 250 mg Sodium Chloride (Saline Flush) 10 ml FLUSH ONETIME PRN PRN Reason: IV Flush Temazepam (Restoril) 7.5 mg PO BEDTIME PRN PRN Reason: Sleep Last Admin: 10/01/17 22:43 Dose: 7.5 mg Discontinued Medications Dicyclomine HCl (Bentyl) 20 mg PO ONETIME ONE Stop: 09/30/17 04:49 Last Admin: 09/30/17 04:54 Dose: 20 mg Hydromorphone HCl (Dilaudid) 0.5 mg IVPUSH ONETIME ONE Stop: 09/30/17 04:27 Last Admin: 09/30/17 04:39 Dose: 0.5 mg Lactated Ringer's (Ringers, Lactated) 1,000 mls @ 999 mls/hr IV .BOLUS [facility] Last Admin: 09/30/17 04:39 Dose: 999 mls/hr Potassium Chloride/Dextrose/Sod Cl (D5 Ns With 20 Meq Kcl) 1,000 mls @ 125 mls/ hr IV ASDIRECTED [facility] Last Admin: 10/02/17 03:45 Dose: 125 mls/hr Magnesium Sulfate 2 gm/ Premix 50 mls @ 25 mls/hr IV ONETIME ONE Stop: 10/01/17 10:59 Last Admin: 10/01/17 09:15 Dose: 25 mls/hr Iopamidol (Isovue-300 (61%)) 125 ml IVPUSH ONETIME ONE Stop: 09/30/17 06:55 Last Admin: 09/30/17 07:34 Dose: 125 ml Levothyroxine Sodium (Synthroid) 100 mcg PO ACBREAKFAST [facility] Loperamide HCl (Imodium) 4 mg PO ONETIME ONE Stop: 10/01/17 09:33 Last Admin: 10/01/17 09:53 Dose: 4 mg Lorazepam (Ativan) 1 mg IVPUSH ONETIME ONE Stop: 09/30/17 04:51 Last Admin: 09/30/17 04:54 Dose: 1 mg Metoclopramide HCl (Reglan) 7.5 mg IVPUSH ONETIME ONE Stop: 09/30/17 04:27 Last Admin: 09/30/17 04:39 Dose: 7.5 mg - Exam Quality Assessment: DVT Prophylaxis General: Alert, Oriented, No Acute Distress HEENT: Pupils Equal, Pupils Reactive, EOMI Neck: Supple, Trachea Midline Lungs: Normal Respiratory Effort Cardiovascular: Regular Rate, Regular Rhythm GI/Abdominal Exam: Normal Bowel Sounds, Soft, Non-Tender, No Organomegaly, No Distention (Female) Exam: Deferred Back Exam: Normal Inspection Extremities: Normal Inspection Skin: Warm Neurological: No New Focal Deficit Psy/Mental Status: Alert, Anxious - Problem List Review Problem List Initiated/Reviewed/Updated: Yes - My Orders Last 24 Hours: My Active Orders 10/02/17 13:00 BASIC METABOLIC PANEL,BMP [CHEM] Routine CBC WITH AUTO DIFF [HEME] Routine LIPASE [CHEM] Routine MAGNESIUM [CHEM] Routine 10/02/17 Lunch Soft Diet [DIET] - Plan Plan:: I/P: Mild Acute pancreatitis with nausea/vomiting/abdominal pain--etiology idiopathic at this time. -Lipase, decreased -WBC and LFT's WNL. UA and UDS WNL/negative. H.Pylori negative. -CRP negative, <0.2 -CT of abd obtained in ED: concerns for mild ileus or mild enteritis, otherwise negative for acute findings or pancreatic inflammation. -Risk factors: recent OD of vicoprofen 4 days ago. Patient takes lots of OTC supplements. Ransons Criteria: incomplete as no LDH but without LDH included is 1% mortality= very low risk -Cholesterol with triglycerides WNL. -Cholecystectomy years ago and with Normal LFT's. -UDS negative, non-drinker -Hydrate with IVF -NPO x ice chips--> advance to regular diet -Pepcid BID, avoid PPI with acute pancreatitis Mild Hypokalemia -Replace and monitor -Follow magnesium; normal today -- would expect to be low with n/v/d intractable Recent suicide attempt with OD of vicoprofen on 09/26/17 -Was hospitalized overnight for medical clearance here at [facility], discharged to [facility] for inpatient treatment the following day 09/27/17 and discharged yesterday 09/29/17. -Obtain notes/discharge paperwork from [facility], patient signed release and ED requested records for review -No new antidepressant or psychotropic mediations on mediation list or that patient states are new. ? 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 Other: Transfer to observation status DVT/GI prophylax SW consult for assist with arranging psych and counseling at discharge Ambulate Advance diet once pain controlled DC 24-48 hours. Patient is DNR/DNI code status.
[2017-10-02] MEDS: LORazepam 2 MG/ML SDV IV PRN (18:34)
[2017-10-02] MEDS: Temazepam 7.5 MG Cap PO PRN (21:19)
[2017-10-03] MEDS: LORazepam 2 MG/ML SDV IV PRN (02:25)
[2017-10-03] MEDS: Acetaminophen/HYDROcodone 325-5 MG Tab PO PRN ×3 (04:13→13:32)
[2017-10-03] MEDS: Levothyroxine 112 MCG Tab PO SCH (05:35)
[2017-10-03] MEDS: Saccharomyces Boulardii (Probiotic) 250 MG Cap PO SCH (08:03)
[2017-10-03] MEDS: Famotidine 20 MG/2 ML SDV IVPUSH SCH ×2 (08:05→20:37)
[2017-10-03] MEDS: Hypromellose 0.5% Ophth Soln 15 ML Bottle EYEBOTH SCH (10:12)
[2017-10-03] MEDS: LORazepam 0.5 MG Tab PO PRN ×2 (13:32→22:04)
[2017-10-03] MEDS ORDERED: Magnesium Sulfate/Water 2 GM in Premix Bag 1 BAG IV ONE (16:24)
--- NOTE | 2017-10-03 16:32 | PCM.PN ---
- General Info Date of Service: 10/03/17 Functional Status: Reports: Pain Controlled, Tolerating Diet, Ambulating - Review of Systems General: Reports: No Symptoms HEENT: Reports: No Symptoms Pulmonary: Reports: No Symptoms Cardiovascular: Reports: No Symptoms Gastrointestinal: Reports: No Symptoms Genitourinary: Reports: No Symptoms Musculoskeletal: Reports: No Symptoms Skin: Reports: No Symptoms Neurological: Reports: No Symptoms Psychiatric: Reports: No Symptoms - Patient Data Vitals - Most Recent: Last Vital Signs Temp 36.3 C 10/03/17 11:52 Pulse 74 10/03/17 11:52 Resp 20 10/03/17 07:54 BP 150/82 H 10/03/17 11:52 Pulse Ox 95 10/03/17 11:52 Weight - Most Recent: 68.039 kg I&O - Last 24 Hours: Intake & Output 10/03/17 10/03/17 10/03/17 06:59 14:59 22:59 Intake Total 550 240 Output Total 1700 Balance -1150 240 Lab Results Last 24 Hours: Laboratory Results - last 24 hr 10/03/17 10/03/17 Range/Units 06:00 06:00 WBC 6.95 (3.98-10.04) K/mm3 RBC 4.39 (3.98-5.22) M/mm3 Hgb 14.5 (11.2-15.7) gm/L Hct 40.8 (34.1-44.9) % MCV 92.9 (79.4-94.8) fl MCH 33.0 H (25.6-32.2) pg MCHC 35.5 (32.2-35.5) g/dl RDW Std Deviation 39.7 (36.4-46.3) fL Plt Count 131 L (182-369) K/mm3 MPV 10.5 (9.4-12.3) fl Neut % (Auto) 65.8 (34.0-71.1) % Lymph % (Auto) 24.2 (19.3-51.7) % [place] % (Auto) 7.9 (4.7-12.5) % Eos % (Auto) 1.7 (0.7-5.8) Baso % (Auto) 0.1 (0.1-1.2) % Neut # (Auto) 4.57 (1.56-6.13) K/mm3 Lymph # (Auto) 1.68 (1.18-3.74) K/mm3 [place] # (Auto) 0.55 H (0.24-0.36) K/mm3 Eos # (Auto) 0.12 (0.04-0.36) K/mm3 Baso # (Auto) 0.01 (0.01-0.08) K/mm3 Sodium 145 (136-145) mEq/L Potassium 3.9 (3.5-5.1) mEq/L Chloride 110 H (98-107) mEq/L Carbon Dioxide 24 (21-32) mEq/L Anion Gap 14.9 (5-15) BUN 8 (7-18) mg/dL Creatinine 0.5 L (0.55-1.02) mg/dL Est Cr Clr Drug Dosing 82.66 mL/min Estimated GFR (MDRD) > 60 (>60) mL/min BUN/Creatinine Ratio 16.0 (14-18) Glucose 96 (83-115) mg/dL Calcium 8.3 L (8.5-10.1) mg/dL Magnesium 1.9 (1.8-2.4) mg/dl Lipase 358 (73-393) U/L Med Orders - Current: Current Medications Hydrocodone Bitart/Acetaminophen ([place] 325-5 Mg) 1 tab PO Q4H PRN PRN Reason: Pain (moderate 4-6) Last Admin: 10/03/17 13:32 Dose: 1 tab Artificial Tears (Isopto Tears 0.5% Ophth Soln) 0 ml EYEBOTH DAILY [facility] Last Admin: 10/03/17 10:12 Dose: Not Given Dicyclomine HCl (Bentyl) 10 mg PO QIDACANDBED PRN PRN Reason: abd pain/cramping Famotidine (Pepcid) 20 mg IVPUSH BID [facility] Last Admin: 10/03/17 08:05 Dose: 20 mg Hydromorphone HCl (Dilaudid) 0.5 mg IVPUSH Q2H PRN PRN Reason: Pain (severe 7-10) Last Admin: 10/01/17 04:02 Dose: 0.5 mg Magnesium Sulfate 2 gm/ Premix 50 mls @ 25 mls/hr IV ONETIME ONE Stop: 10/03/17 18:23 Levothyroxine Sodium (Levothyroxine) 112 mcg PO ACBREAKFAST [facility] Last Admin: 10/03/17 05:35 Dose: 112 mcg Lorazepam (Ativan) 0.5 mg IV Q6H PRN PRN Reason: Nausea/Vomiting--restlessness Last Admin: 10/03/17 02:25 Dose: 0.5 mg Lorazepam (Ativan) 0 mg .XX Q4H PRN; Protocol PRN Reason: CIWAA scale Last Admin: 10/02/17 05:51 Dose: 1 mg Lorazepam (Ativan) 0.5 mg PO BID PRN PRN Reason: Anxiety Last Admin: 10/03/17 13:32 Dose: 0.5 mg Magnesium Sulfate (Pharmacy To Dose - Magnesium Replacement) 1 dose .XX ASDIRECTED [facility] Ondansetron HCl (Zofran Odt) 4 mg PO Q4H PRN PRN Reason: nausea, able to take PO Ondansetron HCl (Zofran) 4 mg IV Q4H PRN PRN Reason: Nausea/Vomiting Potassium Chloride (Pharmacy To Dose - Potassium Replacement) 1 dose .XX ASDIRECTED [facility] Saccharomyces Boulardii (Florastor) 250 mg PO DAILY [facility] Last Admin: 10/03/17 08:03 Dose: 250 mg Sodium Chloride (Saline Flush) 10 ml FLUSH ONETIME PRN PRN Reason: IV Flush Temazepam (Restoril) 7.5 mg PO BEDTIME PRN PRN Reason: Sleep Last Admin: 10/02/17 21:19 Dose: 7.5 mg Discontinued Medications Dicyclomine HCl (Bentyl) 20 mg PO ONETIME ONE Stop: 09/30/17 04:49 Last Admin: 09/30/17 04:54 Dose: 20 mg Hydromorphone HCl (Dilaudid) 0.5 mg IVPUSH ONETIME ONE Stop: 09/30/17 04:27 Last Admin: 09/30/17 04:39 Dose: 0.5 mg Lactated Ringer's (Ringers, Lactated) 1,000 mls @ 999 mls/hr IV .BOLUS [facility] Last Admin: 09/30/17 04:39 Dose: 999 mls/hr Potassium Chloride/Dextrose/Sod Cl (D5 Ns With 20 Meq Kcl) 1,000 mls @ 125 mls/ hr IV ASDIRECTED [facility] Last Admin: 10/02/17 03:45 Dose: 125 mls/hr Magnesium Sulfate 2 gm/ Premix 50 mls @ 25 mls/hr IV ONETIME ONE Stop: 10/01/17 10:59 Last Admin: 10/01/17 09:15 Dose: 25 mls/hr Iopamidol (Isovue-300 (61%)) 125 ml IVPUSH ONETIME ONE Stop: 09/30/17 06:55 Last Admin: 09/30/17 07:34 Dose: 125 ml Levothyroxine Sodium (Synthroid) 100 mcg PO ACBREAKFAST [facility] Loperamide HCl (Imodium) 4 mg PO ONETIME ONE Stop: 10/01/17 09:33 Last Admin: 10/01/17 09:53 Dose: 4 mg Lorazepam (Ativan) 1 mg IVPUSH ONETIME ONE Stop: 09/30/17 04:51 Last Admin: 09/30/17 04:54 Dose: 1 mg Metoclopramide HCl (Reglan) 7.5 mg IVPUSH ONETIME ONE Stop: 09/30/17 04:27 Last Admin: 09/30/17 04:39 Dose: 7.5 mg - Exam Quality Assessment: DVT Prophylaxis General: Alert, Oriented, Cooperative HEENT: Pupils Equal, Pupils Reactive Neck: Supple, Trachea Midline Lungs: Normal Respiratory Effort Cardiovascular: Regular Rate, Regular Rhythm GI/Abdominal Exam: Normal Bowel Sounds, Soft, Non-Tender, No Organomegaly, No Distention (Female) Exam: Deferred Back Exam: Normal Inspection Extremities: Normal Inspection Skin: Warm Neurological: No New Focal Deficit Psy/Mental Status: Alert, Anxious - Problem List Review Problem List Initiated/Reviewed/Updated: Yes - My Orders Last 24 Hours: My Active Orders 10/03/17 10:13 LORazepam [Ativan] 0.5 mg PO BID PRN 10/03/17 16:24 Magnesium Sulfate/Water [Magnesium Sulfate 2 GM in Water 50 ML] 2 gm Premix Bag 1 bag IV ONETIME - Plan Plan:: I/P: Mild Acute pancreatitis with nausea/vomiting/abdominal pain--etiology idiopathic at this time. -Lipase, decreased -WBC and LFT's WNL. UA and UDS WNL/negative. H.Pylori negative. -CRP negative, <0.2 -CT of abd obtained in ED: concerns for mild ileus or mild enteritis, otherwise negative for acute findings or pancreatic inflammation. -Risk factors: recent OD of vicoprofen 4 days ago. Patient takes lots of OTC supplements. Ransons Criteria: incomplete as no LDH but without LDH included is 1% mortality= very low risk -Cholesterol with triglycerides WNL. -Cholecystectomy years ago and with Normal LFT's. -UDS negative, non-drinker -Hydrate with IVF -NPO x ice chips--> advance to regular diet -Pepcid BID, avoid PPI with acute pancreatitis Mild Hypokalemia -Replace and monitor -Follow magnesium; normal today -- would expect to be low with n/v/d intractable Recent suicide attempt with OD of vicoprofen on 09/26/17 -Was hospitalized overnight for medical clearance here at [facility], discharged to [facility] for inpatient treatment the following day 09/27/17 and discharged yesterday 09/29/17. -Obtain notes/discharge paperwork from [facility], patient signed release and ED requested records for review -No new antidepressant or psychotropic mediations on mediation list or that patient states are new. ? 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 Other: Transfer to observation status DVT/GI prophylax SW consult for assist with arranging psych and counseling at discharge Ambulate Advance diet once pain controlled DC 10/04/17 Patient is DNR/DNI code status.
[2017-10-03] MEDS: Temazepam 7.5 MG Cap PO PRN (20:42)
[2017-10-04] MEDS: Levothyroxine 112 MCG Tab PO SCH (05:18)
--- NOTE | 2017-10-04 06:44 | PCM.DCSUM1 ---
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 She reported abdominal pain and cramping associated with the vomiting and diarrhea. Denies hematemesis, hematochezia or melena. She has had cholecystectomy years ago. She was discharged from [facility] the day prior after a suicide attempt with narcotic pain medications. This attempt occurred on September 26; she was admitted to our hospital for 1 day and then discharged to [facility] for inpatient treatment. She reports to ED staff that she was given magnesium for constipation prior to DC at [facility]; after taking that the diarrhea has been persistent. No concerns for "bad food", no other sick contacts. Currently there is concern for withdrawal as patient had been on chronic opioid therapy which has been discontinued since suicide attempt ; since getting Dilaudid in the ED she has settled down and is resting quite comfortably. Patient reports she has chronic back pain for which she was previously prescribed pain medications for year. Upon my examination the emergency department she is resting comfortably, sleeping in fact, but is easy to arouse. States she has absolutely no abdominal pain or cramping at this time and since getting the medication she has been able to sleep and rest comfortably. She tells me she has not slept for 48 hours and feels rested now that she has gotten some sleep. She has had hot flashes and sweats but denies fevers or chills. Denies chest pain shortness of breath palpitations headache or syncope. She currently denies suicidal ideation but when I do ask about CODE STATUS she states "please just let me go I've lived long enough". Apparently she told the EMS personnel that she was deaf however she has no trouble hearing me at my normal voice dB today. Please see Dr. Rollins's ER notes and documentation for extensive synopsis of recent psychiatric admission. Past medical history is significant for asthma osteoarthritis degenerative joint and degenerative disc disease of the back, hypothyroidism noncompliance with medications is suspected, TSH was drawn on 09/26 and was elevated at 12.2; self-reported, self-diagnosed and homeopathic treatment for breast cancer which she states is cured. 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 She takes a multitude of supplements and over-the -counter medications. Depression with recent suicide attempt 4 days ago; no antidepressants or other psychotropic medications are listed on her current medication list. ER evaluation is with CBC showing normal white count of 9.57 hemoglobin and hematocrit elevated at 16.0 and 45.4 respectively, platelets slightly low at 144. Metabolic panel is with a potassium of 3.4 other electrolytes within normal limits including magnesium at 1.8. BUN/creatinine normal. Glucose 112, liver function tests are all within normal limits. CRP is less than 0.2. Lipase level is slightly elevated at 658. Ferritin level was also checked and is normal at 114. Urinalysis is unremarkable, urine drug screen is negative. ED has requested discharge notes from [facility] with patient release signed. Awaiting those records. Hospitalist service is consulted for admission for acute pancreatitis with n/v/ d and abd pain. - Discharge Data Discharge Date: 10/04/17 (admit date 09/30/17) Discharge Disposition: Home, Self-Care 01 Condition: Good - Discharge Diagnosis/Problem(s) (1) Acute pancreatitis SNOMED Code(s): 448817714 ICD Code: K85.90 - ACUTE PANCREATITIS WITHOUT NECROSIS OR INFECTION, UNSP Status: Resolved Priority: High Current Visit: Yes Qualifiers: Pancreatitis type: idiopathic Acute pancreatitis complication: unspecified Qualified Code(s): K85.00 - Idiopathic acute pancreatitis without necrosis or infection (2) Abdominal pain SNOMED Code(s): 76222519 ICD Code: R10.9 - UNSPECIFIED ABDOMINAL PAIN Status: Resolved Priority: High Current Visit: Yes (3) Intractable nausea and vomiting SNOMED Code(s): 432448839 ICD Code: R11.2 - NAUSEA WITH VOMITING, UNSPECIFIED Status: Resolved Priority: High Current Visit: Yes Qualifiers: Vomiting type: unspecified Qualified Code(s): R11.2 - Nausea with vomiting , unspecified (4) Depression SNOMED Code(s): 43570372 ICD Code: F32.9 - MAJOR DEPRESSIVE DISORDER, SINGLE EPISODE, UNSPECIFIED Status: Chronic Priority: High Current Visit: Yes Qualifiers: Depression Type: major depressive disorder Major depression recurrence: single episode Active/Remission status: currently active Psychotic features : without psychotic features (5) Chronic pain syndrome SNOMED Code(s): 170386778 ICD Code: G89.4 - CHRONIC PAIN SYNDROME Status: Chronic Priority: Medium Current Visit: Yes (6) Hypothyroidism SNOMED Code(s): 66918638 ICD Code: E03.9 - HYPOTHYROIDISM, UNSPECIFIED Status: Chronic Priority: Low Current Visit: Yes Qualifiers: Hypothyroidism type: unspecified Qualified Code(s): E03.9 - Hypothyroidism , unspecified - Patient Summary/Data Operative Procedure(s) Performed: None Complications: None Consults: None Labs Pending at D/C: None Recommended Follow-up Testing/Procedures: Follow up with PCP within 5-7 days of discharge Recommend recheck TSH in 4-6 weeks as it was high; compliance with medication is essential. Follow up with Psychiatry as soon as you are able to get appointment- [facility] will schedule this Push fluids, bland diet. Planned Operative Procedure(s) after DC: None Hospital Course: I/P: Mild Acute pancreatitis with nausea/vomiting/abdominal pain--etiology idiopathic at this time. -Lipase, decreased -WBC and LFT's WNL. UA and UDS WNL/negative. H.Pylori negative. -CRP negative, <0.2 x 2 days -CT of abd obtained in ED: concerns for mild ileus or mild enteritis, otherwise negative for acute findings or pancreatic inflammation. -Risk factors: recent OD of vicoprofen 4 days ago. Patient takes lots of OTC supplements. Ransons Criteria: incomplete as no LDH but without LDH included is 1% mortality= very low risk -Cholesterol with triglycerides WNL. -Cholecystectomy years ago and with Normal LFT's. -UDS negative, non-drinker -Hydrate with IVF -tolerating soft diet without return of n/v or pain -Pepcid BID, avoid PPI with acute pancreatitis Mild Hypokalemia--resolved -Replace and monitor -Follow magnesium-- would expect to be low with n/v/d intractable Recent suicide attempt with OD of vicoprofen on 09/26/17 -Was hospitalized overnight for medical clearance here at [facility], discharged to [facility] for inpatient treatment the following day 09/27/17 and discharged yesterday 09/29/17. -Obtain notes/discharge paperwork from [facility], patient signed release and ED requested records for review -No new antidepressant or psychotropic mediations on mediation list or that patient states are new. ? 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 Other: Transfer to observation status DVT/GI prophylax SW consult for assist with arranging psych and counseling at discharge--- Patient is [facility] patient, [facility] will arrange follow up visits with PCP and Psychiatry. Ambulate--doing well As above anny soft diet, regular this morning. Lipase levels now WNL. Plan DC home with [facility] services this morning. - Patient Instructions Diet: Usual Diet as Tolerated (advance slowly as tolerated; recommend bland for the next few days) Activity: As Tolerated Driving: Do Not Drive Showering/Bathing: May Shower Notify Provider of: Fever, Increased Pain, Nausea and/or Vomiting - Discharge Plan Prescriptions/Med Rec: Dicyclomine [Bentyl] 10 mg PO QIDACANDBED PRN #20 cap PRN Reason: abd pain/cramping Famotidine [Pepcid] 20 mg PO BID #60 tablet Home Medications: Home Meds Amino Acids [Amino Acid] 1 each PO DAILY 09/26/17 [History] Ascorbic Acid [C-1000] 1,000 mg PO DAILY 09/26/17 [History] Calcium Carbonate/Vitamin D3 [Calcium Carbonate/Vitamin D 1250 MG-200 Unit] 1 tab PO BIDMEALS 09/26/17 [History] Cholecalciferol (Vitamin D3) [Vitamin D3] 10,000 unit PO DAILY 09/26/17 [History ] Digestive 8/L.acidoph/Pectin [Digestive Enzymes Tablet] 1 each PO DAILY [History] [place] 150 mg PO TID 09/26/17 [History] Magnesium 200 mg PO DAILY 09/26/17 [History] Milk Thistle 1 gm MC DAILY 09/26/17 [History] Polyvinyl Alcohol/Povidone/Pf [Refresh Classic Eye Drops] 1 drop DAILY 09/26/17 [History] Potassium Citrate [Potassium Citrate ER] 5 meq PO DAILY 09/26/17 [History] Selenium 200 mcg PO DAILY 09/26/17 [History] Vit A/Vit C/Vit E/Zinc/Copper [Preservision] 1 each PO DAILY 09/26/17 [History] Vitamin B Complex [B Complex] 1 each PO DAILY 09/26/17 [History] Vitamin E Acetate [Vitamin E] 400 unit PO DAILY 09/26/17 [History] Zinc 22.5 mg PO DAILY 09/26/17 [History] Levothyroxine 112 mcg PO ACBREAKFAST 09/30/17 [History] traMADol [Ultram] 50 mg PO BEDTIME 09/30/17 [History] traMADol [Ultram] 50 mg PO Q6H PRN 09/30/17 [History] Dicyclomine [Bentyl] 10 mg PO QIDACANDBED PRN #20 cap 10/04/17 [Rx] Famotidine [Pepcid] 20 mg PO BID #60 tablet 10/04/17 [Rx] Patient Handouts: Hypothyroidism, Major Depressive Disorder, Nausea and Vomiting, Adult, Acute Pancreatitis Forms: ED Department Discharge Referrals: Aleksandr Stephen MD [Ordering Only Provider] - (This is pt's primary Doctor) Fidel Chang MD [Ordering Only Provider] - (telemedicine for [facility], (this is ps0.y) [facility] will set this up) - Discharge Summary/Plan Comment DC Time >30 min.: Yes (40 min) - General Info Date of Service: 10/04/17 Admission Dx/Problem (Free Text: Admission Diagnosis/Problem Admission Diagnosis/Problem Acute pancreatitis Functional Status: Reports: Pain Controlled, Tolerating Diet, Ambulating, Urinating. Denies: New Symptoms - Review of Systems General: Reports: No Symptoms HEENT: Reports: No Symptoms Pulmonary: Reports: No Symptoms Cardiovascular: Reports: No Symptoms Gastrointestinal: Reports: No Symptoms Genitourinary: Reports: No Symptoms Musculoskeletal: Reports: No Symptoms Skin: Reports: No Symptoms Neurological: Reports: No Symptoms Psychiatric: Reports: Mood Lability, Anxiety - Patient Data Vitals - Most Recent: Last Vital Signs Temp 98.1 F 10/04/17 04:00 Pulse 52 L 10/04/17 04:00 Resp 16 10/04/17 04:00 BP 152/79 H 10/04/17 04:00 Pulse Ox 94 L 10/04/17 04:00 Weight - Most Recent: 146 lb 11.2 oz I&O - Last 24 hours: Intake & Output 10/03/17 10/03/17 10/04/17 14:59 22:59 06:59 Intake Total 240 1100 700 Output Total 1500 3025 Balance 240 400 -2765 Lab Results - Last 24 hrs: Laboratory Results - last 24 hr 10/03/17 10/03/17 Range/Units 06:00 06:00 WBC 6.95 (3.98-10.04) K/mm3 RBC 4.39 (3.98-5.22) M/mm3 Hgb 14.5 (11.2-15.7) gm/L Hct 40.8 (34.1-44.9) % MCV 92.9 (79.4-94.8) fl MCH 33.0 H (25.6-32.2) pg MCHC 35.5 (32.2-35.5) g/dl RDW Std Deviation 39.7 (36.4-46.3) fL Plt Count 131 L (182-369) K/mm3 MPV 10.5 (9.4-12.3) fl Neut % (Auto) 65.8 (34.0-71.1) % Lymph % (Auto) 24.2 (19.3-51.7) % [place] % (Auto) 7.9 (4.7-12.5) % Eos % (Auto) 1.7 (0.7-5.8) Baso % (Auto) 0.1 (0.1-1.2) % Neut # (Auto) 4.57 (1.56-6.13) K/mm3 Lymph # (Auto) 1.68 (1.18-3.74) K/mm3 [place] # (Auto) 0.55 H (0.24-0.36) K/mm3 Eos # (Auto) 0.12 (0.04-0.36) K/mm3 Baso # (Auto) 0.01 (0.01-0.08) K/mm3 Sodium 145 (136-145) mEq/L Potassium 3.9 (3.5-5.1) mEq/L Chloride 110 H (98-107) mEq/L Carbon Dioxide 24 (21-32) mEq/L Anion Gap 14.9 (5-15) BUN 8 (7-18) mg/dL Creatinine 0.5 L (0.55-1.02) mg/dL Est Cr Clr Drug Dosing 82.66 mL/min Estimated GFR (MDRD) > 60 (>60) mL/min BUN/Creatinine Ratio 16.0 (14-18) Glucose 96 (83-115) mg/dL Calcium 8.3 L (8.5-10.1) mg/dL Magnesium 1.9 (1.8-2.4) mg/dl Lipase 358 (73-393) U/L Med Orders - Current: Current Medications Hydrocodone Bitart/Acetaminophen ([place] 325-5 Mg) 1 tab PO Q4H PRN PRN Reason: Pain (moderate 4-6) Last Admin: 10/03/17 13:32 Dose: 1 tab Artificial Tears (Isopto Tears 0.5% Ophth Soln) 0 ml EYEBOTH DAILY [facility] Last Admin: 10/03/17 10:12 Dose: Not Given Dicyclomine HCl (Bentyl) 10 mg PO QIDACANDBED PRN PRN Reason: abd pain/cramping Famotidine (Pepcid) 20 mg IVPUSH BID [facility] Last Admin: 10/03/17 20:37 Dose: 20 mg Hydromorphone HCl (Dilaudid) 0.5 mg IVPUSH Q2H PRN PRN Reason: Pain (severe 7-10) Last Admin: 10/01/17 04:02 Dose: 0.5 mg Levothyroxine Sodium (Levothyroxine) 112 mcg PO ACBREAKFAST [facility] Last Admin: 10/04/17 05:18 Dose: 112 mcg Lorazepam (Ativan) 0.5 mg IV Q6H PRN PRN Reason: Nausea/Vomiting--restlessness Last Admin: 10/03/17 02:25 Dose: 0.5 mg Lorazepam (Ativan) 0 mg .XX Q4H PRN; Protocol PRN Reason: CIWAA scale Last Admin: 10/02/17 05:51 Dose: 1 mg Lorazepam (Ativan) 0.5 mg PO BID PRN PRN Reason: Anxiety Last Admin: 10/03/17 22:04 Dose: 0.5 mg Magnesium Sulfate (Pharmacy To Dose - Magnesium Replacement) 1 dose .XX ASDIRECTED [facility] Ondansetron HCl (Zofran Odt) 4 mg PO Q4H PRN PRN Reason: nausea, able to take PO Ondansetron HCl (Zofran) 4 mg IV Q4H PRN PRN Reason: Nausea/Vomiting Potassium Chloride (Pharmacy To Dose - Potassium Replacement) 1 dose .XX ASDIRECTED [facility] Saccharomyces Boulardii (Florastor) 250 mg PO DAILY [facility] Last Admin: 10/03/17 08:03 Dose: 250 mg Sodium Chloride (Saline Flush) 10 ml FLUSH ONETIME PRN PRN Reason: IV Flush Temazepam (Restoril) 7.5 mg PO BEDTIME PRN PRN Reason: Sleep Last Admin: 10/03/17 20:42 Dose: 7.5 mg Discontinued Medications Dicyclomine HCl (Bentyl) 20 mg PO ONETIME ONE Stop: 09/30/17 04:49 Last Admin: 09/30/17 04:54 Dose: 20 mg Hydromorphone HCl (Dilaudid) 0.5 mg IVPUSH ONETIME ONE Stop: 09/30/17 04:27 Last Admin: 09/30/17 04:39 Dose: 0.5 mg Lactated Ringer's (Ringers, Lactated) 1,000 mls @ 999 mls/hr IV .BOLUS [facility] Last Admin: 09/30/17 04:39 Dose: 999 mls/hr Potassium Chloride/Dextrose/Sod Cl (D5 Ns With 20 Meq Kcl) 1,000 mls @ 125 mls/ hr IV ASDIRECTED [facility] Last Admin: 10/02/17 03:45 Dose: 125 mls/hr Magnesium Sulfate 2 gm/ Premix 50 mls @ 25 mls/hr IV ONETIME ONE Stop: 10/01/17 10:59 Last Admin: 10/01/17 09:15 Dose: 25 mls/hr Magnesium Sulfate 2 gm/ Premix 50 mls @ 25 mls/hr IV ONETIME ONE Stop: 10/03/17 18:23 Last Admin: 10/03/17 17:29 Dose: 25 mls/hr Iopamidol (Isovue-300 (61%)) 125 ml IVPUSH ONETIME ONE Stop: 09/30/17 06:55 Last Admin: 09/30/17 07:34 Dose: 125 ml Levothyroxine Sodium (Synthroid) 100 mcg PO ACBREAKFAST ALEKSANDAR Loperamide HCl (Imodium) 4 mg PO ONETIME ONE Stop: 10/01/17 09:33 Last Admin: 10/01/17 09:53 Dose: 4 mg Lorazepam (Ativan) 1 mg IVPUSH ONETIME ONE Stop: 09/30/17 04:51 Last Admin: 09/30/17 04:54 Dose: 1 mg Metoclopramide HCl (Reglan) 7.5 mg IVPUSH ONETIME ONE Stop: 09/30/17 04:27 Last Admin: 09/30/17 04:39 Dose: 7.5 mg - Exam Quality Assessment: Reports: DVT Prophylaxis General: Reports: Alert, Oriented, Cooperative, No Acute Distress HEENT: Reports: Pupils Equal, EOMI, Mucous Membr. Moist/[place] Neck: Reports: Supple Lungs: Reports: Clear to Auscultation, Normal Respiratory Effort Cardiovascular: Reports: Regular Rate, Regular Rhythm GI/Abdominal Exam: Normal Bowel Sounds, Soft, Non-Tender, No Organomegaly. No: Guarding, Rigid, Rebound, Tender (Female) Exam: Deferred Rectal (Female) Exam: Deferred Extremities: Normal Inspection, No Pedal Edema, Normal Capillary Refill Skin: Reports: Warm, Dry, Intact Neurological: Reports: No New Focal Deficit Psy/Mental Status: Reports: Alert, Other (flat affect) *Q Meaningful Use (DIS) - VTE *Q VTE Criteria *Q: - Stroke *Q Stroke Criteria *Q: - AMI *Q AMI Criteria *Q:
[2017-10-04] MEDS: Hypromellose 0.5% Ophth Soln 15 ML Bottle EYEBOTH SCH (08:26)
[2017-10-04] MEDS: Famotidine 20 MG/2 ML SDV IVPUSH SCH (08:26)
[2017-10-04] MEDS: Saccharomyces Boulardii (Probiotic) 250 MG Cap PO SCH (08:26)
== END 2017-10-04 09:05 | disposition home or self-care (01) | DRG 440 ==
LOC: JD.ED 04:18 → JD.MS 06:38 → UNDOADMIN 06:38 → JD.MS 07:20
PROVIDERS: ADMIT Internal Medicine; ATTEND Internal Medicine
DX: K85.00 Idiopathic acute pancreatitis without necrosis or infection (principal); R11.2 Nausea with vomiting, unspecified; E03.9 Hypothyroidism, unspecified; F32.9 Major depressive disorder, single episode, unspecified; G89.4 Chronic pain syndrome; E87.6 Hypokalemia; Z91.5 Personal history of self-harm; J45.909 Unspecified asthma, uncomplicated; M19.90 Unspecified osteoarthritis, unspecified site; H91.90 Unspecified hearing loss, unspecified ear; H54.7 Unspecified visual loss; Z66 Do not resuscitate; Z90.49 Acquired absence of other specified parts of digestive tract; M54.9 Dorsalgia, unspecified; Z91.14 Patient's other noncompliance with medication regimen; Z79.899 Other long term (current) drug therapy
CPT/HCPCS: 36415; 74177; 74177-26; 80048; 80053; 80061; 80306; 81003; 82728; 83690; 83735; 85025; 86140; 86677; 96361; 96374; 96375; 99284; 99285-25; A9270-GY; J1170; J2060; J2765; J3475; J3480; J7120; Q9967

== ENCOUNTER 2017-10-15 12:23 | Emergency (ER) | payer OTHER ==
[2017-10-15] MEDS ORDERED: Sodium Chloride 0.9% 10 ML Syringe FLUSH PRN (12:47)
[2017-10-15] MEDS ORDERED: Sodium Chloride 0.9% 500 ML IV ONE (12:47)
[2017-10-15] MEDS ORDERED: LORazepam 2 MG/ML MDV IVPUSH ONE ×3 (12:56→15:34)
--- NOTE | 2017-10-15 15:29 | EDM.PDOC ---
ED HPI GENERAL MEDICAL PROBLEM - General Chief Complaint: Abdominal Pain Stated Complaint: [facility] Time Seen by Provider: 10/15/17 12:30 Source of Information: Reports: Patient, RN Notes Reviewed - History of Present Illness INITIAL COMMENTS - FREE TEXT/NARRATIVE: 76-year-old female presents to ED with upper abdominal pain. She was vomiting a few days ago by her history but has not been vomiting today. Her pain is upper mid abdomen with low back discomfort as well. She did overdose on narcotic pain medication several weeks ago. She now is apparently [facility] patient living at the [facility] living [facility]. Her narcotics were stopped about 2 weeks ago. She states she does have history of pancreatitis. SHe is concerned about hot flashes but when asked about when that all started she states about "30 years ago". Abdomen Pain Score (Numeric/FACES): 6 - Related Data Allergies Allergy/AdvReac Type Severity Reaction Status Date / Time No Known Allergies Allergy Verified 09/30/17 04:25 Home Meds: Home Meds Digestive 8/L.acidoph/Pectin [Digestive Enzymes Tablet] 1 each PO DAILY [History] Polyvinyl Alcohol/Povidone/Pf [Refresh Classic Eye Drops] 1 drop EYEBOTH DAILY 09/26/17 [History] Levothyroxine 100 mcg PO ACBREAKFAST 09/30/17 [History] Famotidine [Pepcid] 20 mg PO BID #60 tablet 10/04/17 [Rx] Dicyclomine [Bentyl] 10 mg PO QIDACANDBED 10/15/17 [History] HYDROcodone/Ibuprofen [Vicoprofen] 1 tab PO Q6H PRN 10/15/17 [History] Past Medical History HEENT History: Reports: Hard of Hearing, Impaired Vision Respiratory History: Reports: Asthma Gastrointestinal History: Reports: None Genitourinary History: Reports: None 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: , Prolapsed 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 Other OB/BYN History: Patient has had 3 miscarriages Musculoskeletal History: Reports: Osteoarthritis Neurological History: Reports: None Psychiatric History: Reports: Depression, Suicide Attempt, Suicidal Ideation Endocrine/Metabolic History: Reports: Hypothyroidism Hematologic History: Reports: B12 Deficiency, Folic Acid, Hemochromatosis Immunologic History: Reports: None Oncologic (Cancer) History: Reports: Breast, Other (See Below) Other Oncologic History: left breast cancer--pt states that this is self diagnosed Dermatologic History: Reports: Other (See Below) Other Dermatologic History: Cysts - Infectious Disease History Infectious Disease History: Reports: Chicken Pox, Measles, Mumps - Past Surgical History Head Surgeries/Procedures: Reports: None HEENT Surgical History: Reports: Cataract Surgery Respiratory Surgical History: Reports: None GI Surgical History: Reports: Cholecystectomy, Colonoscopy Female Surgical History: Reports: Hysterectomy, Oophorectomy Musculoskeletal Surgical History: Reports: Other (See Below) Other Musculoskeletal Surgeries/Procedures:: left harry fx. Dermatological Surgical History: Reports: None Social & Family History - Family History Cardiac: Reports: Aneurysm, Hypertension Neurological: Reports: Parkinson's Oncologic: Reports: Bone, Lymphoma, Prostate - Tobacco Use Smoking Status *Q: Never Smoker Second Hand Smoke Exposure: No - Caffeine Use Caffeine Use: Reports: None - Recreational Drug Use Recreational Drug Use: No - Living Situation & Occupation Living situation: Reports: , Alone Occupation: Retired ED ROS GENERAL - Review of Systems Review Of Systems: See Below Constitutional: Denies: Fever, Chills, Diaphoresis HEENT: Denies: Throat Pain Respiratory: Denies: Shortness of Breath, Pleuritic Chest Pain Cardiovascular: Denies: Chest Pain GI/Abdominal: Reports: Abdominal Pain, Nausea, Vomiting. Denies: Hematochezia, Melena Musculoskeletal: Reports: Back Pain Skin: Reports: No Symptoms Neurological: Reports: No Symptoms Psychiatric: Reports: Anxiety, Other (Difficulty sleeping) ED EXAM, GI/ABD - Physical Exam Exam: See Below General Appearance: Alert, Anxious, Mild Distress Eyes: Bilateral: Normal Appearance Throat/Mouth: Normal Inspection, Normal Oropharynx Head: Atraumatic. No: Facial Swelling Neck: Supple, Full Range of Motion Respiratory/Chest: No Respiratory Distress, Lungs Clear, Normal Breath Sounds Cardiovascular: Regular Rate, Rhythm GI/Abdominal Exam: Soft, Tender (Mild tenderness upper mid abdomen) Extremities: Normal Inspection. No: Pedal Edema, Leg Pain Neurological: Alert, Oriented, No Motor/Sensory Deficits Skin Exam: Warm, Dry, Normal Color Course - Vital Signs Last Recorded V/S: Last Vital Signs Temp 98.4 F 10/15/17 12:29 Pulse 62 10/15/17 12:29 Resp 22 H 10/15/17 12:29 BP 148/86 H 10/15/17 12:29 Pulse Ox 98 10/15/17 12:29 - Orders/Labs/Meds Orders: Active Orders 24 hr Category Date Time Status Peripheral IV Care [RC] . DIRECTED Care 10/15/17 12:47 Active Sodium Chloride 0.9% [Saline Flush] Med 10/15/17 12:47 Active 10 ml FLUSH ASDIRECTED PRN Peripheral IV Insertion Adult [OM.PC] Stat Oth 10/15/17 12:47 Ordered Medication Orders Sodium Chloride (Saline Flush) 10 ml FLUSH ASDIRECTED PRN PRN Reason: Keep Vein Open Last Admin: 10/15/17 13:20 Dose: 10 ml Labs: Laboratory Tests 10/15/17 10/15/17 Range/Units 13:05 13:05 WBC 8.45 (3.98-10.04) K/mm3 RBC 4.51 (3.98-5.22) M/mm3 Hgb 14.9 (11.2-15.7) gm/L Hct 41.2 (34.1-44.9) % MCV 91.4 (79.4-94.8) fl MCH 33.0 H (25.6-32.2) pg MCHC 36.2 H (32.2-35.5) g/dl RDW Std Deviation 39.8 (36.4-46.3) fL Plt Count 154 L (182-369) K/mm3 MPV 9.7 (9.4-12.3) fl Neut % (Auto) 72.3 H (34.0-71.1) % Lymph % (Auto) 18.6 L (19.3-51.7) % [place] % (Auto) 8.3 (4.7-12.5) % Eos % (Auto) 0.5 L (0.7-5.8) Baso % (Auto) 0.1 (0.1-1.2) % Neut # (Auto) 6.11 (1.56-6.13) K/mm3 Lymph # (Auto) 1.57 (1.18-3.74) K/mm3 [place] # (Auto) 0.70 H (0.24-0.36) K/mm3 Eos # (Auto) 0.04 (0.04-0.36) K/mm3 Baso # (Auto) 0.01 (0.01-0.08) K/mm3 Sodium 140 (136-145) mEq/L Potassium 3.6 (3.5-5.1) mEq/L Chloride 106 (98-107) mEq/L Carbon Dioxide 22 (21-32) mEq/L Anion Gap 15.6 H (5-15) BUN 6 L (7-18) mg/dL Creatinine 0.6 (0.55-1.02) mg/dL Est Cr Clr Drug Dosing 68.88 mL/min Estimated GFR (MDRD) > 60 (>60) mL/min BUN/Creatinine Ratio 10.0 L (14-18) Glucose 108 (83-115) mg/dL Calcium 8.8 (8.5-10.1) mg/dL Total Bilirubin 0.4 (0.2-1.0) mg/dL AST 17 (15-37) U/L ALT 34 (14-59) U/L Alkaline Phosphatase 48 (46-116) U/L Total Protein 6.5 (6.4-8.2) g/dl Albumin 3.2 L (3.4-5.0) g/dl Globulin 3.3 gm/dL Albumin/Globulin Ratio 1.0 (1-2) Lipase 591 H (73-393) U/L Meds: Medications Generic Name Dose Route Start Last Admin Trade Name Freharriet PRN Reason Stop Dose Admin Sodium Chloride 10 ml 10/15/17 12:47 10/15/17 13:20 Saline Flush FLUSH 10 ml ASDIRECTED PRN Administration Keep Vein Open Discontinued Medications Generic Name Dose Route Start Last Admin Trade Name Song PRN Reason Stop Dose Admin Sodium Chloride 500 mls @ 999 mls/hr 10/15/17 12:47 10/15/17 13:17 Normal Saline IV 10/15/17 13:17 999 mls/hr .BOLUS ONE Administration Ketorolac Tromethamine 15 mg 10/15/17 15:45 Toradol IVPUSH ONETIME ALEKSANDAR Ketorolac Tromethamine 15 mg 10/15/17 15:44 Toradol IVPUSH 10/15/17 15:45 ONETIME ONE Lorazepam 0.5 mg 10/15/17 12:56 10/15/17 13:21 Ativan IVPUSH 10/15/17 12:57 0.5 mg ONETIME ONE Administration Lorazepam 0.5 mg 10/15/17 15:00 10/15/17 15:11 Ativan IVPUSH 10/15/17 15:01 0.5 mg ONETIME ONE Administration Lorazepam 0.25 mg 10/15/17 15:34 Ativan IVPUSH 10/15/17 15:35 ONETIME ONE - Re-Assessments/Exams Free Text/Narrative Re-Assessment/Exam: 10/15/17 16:01 Labs have all come back relatively normal. Lipase very mildly elevated but improved from when last checked here in the hospital about a week ago. Discharge instructions as documented. Departure - Departure Time of Disposition: 15:49 Disposition: Home, Self-Care 01 Condition: Fair Clinical Impression: Anxiety Abdominal pain Qualifiers: Abdominal location: upper abdomen, unspecified Qualified Code(s): R10.10 - Upper abdominal pain, unspecified - Discharge Information Instructions: Abdominal Pain, Adult, [id number] Referrals: Aleksandr Stephen MD [Primary Care Provider] - Forms: ED Department Discharge Additional Instructions: Continue current medications as previously prescribed, careful bland diet as tolerated, follow-up with your regular medical provider as needed - My Orders Last 24 Hours: My Active Orders 10/15/17 12:47 Peripheral IV Care [RC] . DIRECTED Sodium Chloride 0.9% [Saline Flush] 10 ml FLUSH ASDIRECTED PRN Peripheral IV Insertion Adult [OM.PC] Stat - Assessment/Plan Last 24 Hours: My Active Orders 10/15/17 12:47 Peripheral IV Care [RC] . DIRECTED Sodium Chloride 0.9% [Saline Flush] 10 ml FLUSH ASDIRECTED PRN Peripheral IV Insertion Adult [OM.PC] Stat
[2017-10-15] MEDS ORDERED: Ketorolac 30 MG/ML SDV IVPUSH ONE (15:44)
[2017-10-15] MEDS ORDERED: Ketorolac 30 MG/ML SDV IVPUSH SCH (15:45)
== END 2017-10-15 16:15 | disposition home or self-care (01) ==
LOC: SUPCPDRO 12:23 → JD.ED 12:23
DX: F41.9 Anxiety disorder, unspecified (principal); R10.10 Upper abdominal pain, unspecified; F32.9 Major depressive disorder, single episode, unspecified; E03.9 Hypothyroidism, unspecified; Z79.899 Other long term (current) drug therapy
CPT/HCPCS: 36415; 80053; 83690; 85025; 96361; 96374; 96375; 96376; 99285; J1885; J2060; J7040; J7050; 99284

== ENCOUNTER 2018-03-15 13:27 | Emergency (ER) | payer OTHER ==
[2018-03-15 16:32] LABS: ACETAMINOPHEN 0 ug/mL (10-30)
[2018-03-15] MEDS ORDERED: Ibuprofen 800 MG Tab PO ONE (17:06)
--- NOTE | 2018-03-15 17:09 | EDM.PDOCBH ---
ED HPI GENERAL MEDICAL PROBLEM - General Chief Complaint: Behavioral/Psych Stated Complaint: PAIN-SENT FOR EVAL FROM [facility] Time Seen by Provider: 03/15/18 16:22 Source of Information: Reports: Patient History Limitations: Reports: No Limitations - History of Present Illness INITIAL COMMENTS - FREE TEXT/NARRATIVE: 77 -year-old female sent here by her [facility] physician for concern for depression and anxiety. She sees Dr. Stephen. According to the documentation he sent over, she has a history of chronic pain and anxiety and it has been difficult to control her symptoms. Note states that the patient hasn't been willing to try new medications or follow any other recommendations and they feel like she is "decompensating". She tells me that she is in pain all the time. States that she has a history of severe degenerative back problems and that she used to be on morphine and then Suboxone for this. She was then on hydrocodone. In September of last year she attempted suicide when she was feeling depressed about the severity of her pain and inability to join her family for [place] celebrations. She took a narcotic overdose and after that was admitted to the [facility]. After that all of her narcotics were stopped. She states that she always listen pain. States that she is not depressed and not suicidal but is unhappy with her pain control. States that no other medications have worked. She isn't really able to provide details of what's been tried in white was unsuccessful. States that she is currently only taking ibuprofen. She also takes Xanax for anxiety. States that she's mostly anxious because she can't sleep due to the pain. No new injury. No recent illness. No fever. No additional complaint. I did speak with her primary care physician who states that his main concern is that she seems upset about her pain but won't try any of the treatments that they recommend because she looks up the side effects and refuses treatment. She saw a pain specialist who recommended a spinal cord stimulator but she refused this as well. She seems to be refusing all treatment and continues to request narcotic medications which no one is willing to prescribe given her recent overdose. He sent her here requesting psychiatric admission. However when asked to clarify was unable to articulate a definite reasonable psychosis or risk of harm to herself or others. The patient states that she does not want to be admitted to psychiatric unit. Back Pain Score (Numeric/FACES): 10 Hip Pain Score (Numeric/FACES): 10 - Related Data Allergies Allergy/AdvReac Type Severity Reaction Status Date / Time No Known Allergies Allergy Verified 03/15/18 14:39 Home Meds: Home Meds Digestive 8/L.acidoph/Pectin [Digestive Enzymes Tablet] 1 each PO DAILY [History] Polyvinyl Alcohol/Povidone/Pf [Refresh Classic Eye Drops] 1 drop EYEBOTH DAILY 09/26/17 [History] Levothyroxine 100 mcg PO ACBREAKFAST 09/30/17 [History] Famotidine [Pepcid] 20 mg PO BID #60 tablet 10/04/17 [Rx] Gabapentin [Neurontin] 100 mg PO TID #90 capsule 03/15/18 [Rx] Past Medical History HEENT History: Reports: Hard of Hearing, Impaired Vision Respiratory History: Reports: Asthma Gastrointestinal History: Reports: None Genitourinary History: Reports: None 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: , Prolapsed 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 Other OB/BYN History: Patient has had 3 miscarriages Musculoskeletal History: Reports: Osteoarthritis Neurological History: Reports: None Psychiatric History: Reports: Depression, Suicide Attempt, Suicidal Ideation Endocrine/Metabolic History: Reports: Hypothyroidism Hematologic History: Reports: B12 Deficiency, Folic Acid, Hemochromatosis Immunologic History: Reports: None Oncologic (Cancer) History: Reports: Breast, Other (See Below) Other Oncologic History: left breast cancer--pt states that this is self diagnosed Dermatologic History: Reports: Other (See Below) Other Dermatologic History: Cysts - Infectious Disease History Infectious Disease History: Reports: Chicken Pox, Measles, Mumps - Past Surgical History Head Surgeries/Procedures: Reports: None HEENT Surgical History: Reports: Cataract Surgery Respiratory Surgical History: Reports: None GI Surgical History: Reports: Cholecystectomy, Colonoscopy Female Surgical History: Reports: Hysterectomy, Oophorectomy Musculoskeletal Surgical History: Reports: Other (See Below) Other Musculoskeletal Surgeries/Procedures:: left harry fx. Dermatological Surgical History: Reports: None Social & Family History - Family History Cardiac: Reports: Aneurysm, Hypertension Neurological: Reports: Parkinson's Oncologic: Reports: Bone, Lymphoma, Prostate - Tobacco Use Smoking Status *Q: Never Smoker - Caffeine Use Caffeine Use: Reports: Tea - Recreational Drug Use Recreational Drug Use: No - Living Situation & Occupation Living situation: Reports: , Alone Occupation: Retired ED ROS GENERAL - Review of Systems Review Of Systems: See Below Constitutional: Reports: Malaise, Weakness. Denies: Fever HEENT: Reports: No Symptoms Respiratory: Reports: No Symptoms Cardiovascular: Reports: No Symptoms Endocrine: Reports: No Symptoms GI/Abdominal: Reports: No Symptoms : Reports: No Symptoms Musculoskeletal: Reports: Neck Pain, Back Pain Skin: Reports: No Symptoms Neurological: Reports: No Symptoms. Denies: Headache Psychiatric: Denies: Depression, Suicidal Ideation Hematologic/Lymphatic: Reports: No Symptoms Immunologic: Reports: No Symptoms ED EXAM, BEHAVIORAL HEALTH - Physical Exam Exam: See Below Exam Limited By: No Limitations General Appearance: Alert, WD/WN, No Apparent Distress Eye Exam: Bilateral Eye: EOMI, Normal Inspection, PERRL Ears: Normal External Exam Nose: Normal Inspection Throat/Mouth: Normal Inspection, Normal Oropharynx, Normal Voice Head: Atraumatic, Normocephalic Neck: Normal Inspection, Supple Respiratory/Chest: No Respiratory Distress, Lungs Clear, Normal Breath Sounds, Chest Non-Tender Cardiovascular: Normal Peripheral Pulses, Regular Rate, Rhythm, No Edema, No Murmur GI/Abdominal: Soft, Non-Tender, No Distention. No: Rebound Back Exam: Normal Inspection Extremities: Normal Inspection Neurological: Alert, Normal Mood/Affect, Normal Cognition, No Motor/Sensory Deficits, Oriented x 3 Psychiatric: Alert, Normal Affect, Normal Cognition, Normal Mood, Oriented Skin Exam: Warm, Dry, Intact, Normal color COURSE, BEHAVIORAL HEALTH COMP - Course Vital Signs: Last Vital Signs Temp 36.7 C 03/15/18 14:33 Pulse 65 03/15/18 14:33 Resp 18 03/15/18 14:33 BP 146/75 H 03/15/18 14:33 Pulse Ox 96 03/15/18 14:33 Orders, Labs, Meds: Active Orders 24 hr Category Date Time Status DRUG SCREEN, URINE [URCHEM] Stat Lab 03/15/18 16:15 Ordered Laboratory Tests 03/15/18 03/15/18 03/15/18 Range/Units 15:50 15:50 15:50 WBC 7.41 (3.98-10.04) K/mm3 RBC 4.73 (3.98-5.22) M/mm3 Hgb 14.7 (11.2-15.7) gm/L Hct 44.3 (34.1-44.9) % MCV 93.7 (79.4-94.8) fl MCH 31.1 (25.6-32.2) pg MCHC 33.2 (32.2-35.5) g/dl RDW Std Deviation 44.5 (36.4-46.3) fL Plt Count 189 (182-369) K/mm3 MPV 9.4 (9.4-12.3) fl Neut % (Auto) 62.8 (34.0-71.1) % Lymph % (Auto) 24.2 (19.3-51.7) % [place] % (Auto) 11.3 (4.7-12.5) % Eos % (Auto) 1.3 (0.7-5.8) Baso % (Auto) 0.1 (0.1-1.2) % Neut # (Auto) 4.65 (1.56-6.13) K/mm3 Lymph # (Auto) 1.79 (1.18-3.74) K/mm3 [place] # (Auto) 0.84 H (0.24-0.36) K/mm3 Eos # (Auto) 0.10 (0.04-0.36) K/mm3 Baso # (Auto) 0.01 (0.01-0.08) K/mm3 Sodium 141 (136-145) mEq/L Potassium 4.3 (3.5-5.1) mEq/L Chloride 106 (98-107) mEq/L Carbon Dioxide 24 (21-32) mEq/L Anion Gap 15.3 H (5-15) BUN 23 H (7-18) mg/dL Creatinine 0.8 (0.55-1.02) mg/dL Est Cr Clr Drug Dosing 50.85 mL/min Estimated GFR (MDRD) > 60 (>60) mL/min BUN/Creatinine Ratio 28.8 H (14-18) Glucose 108 (83-115) mg/dL Calcium 9.3 (8.5-10.1) mg/dL Total Bilirubin 0.2 (0.2-1.0) mg/dL AST 28 (15-37) U/L ALT 48 (14-59) U/L Alkaline Phosphatase 70 (46-116) U/L Total Protein 7.4 (6.4-8.2) g/dl Albumin 3.9 (3.4-5.0) g/dl Globulin 3.5 gm/dL Albumin/Globulin Ratio 1.1 (1-2) TSH 3rd Generation 1.538 (0.358-3.74) uIU/mL Salicylates 1.0 L (2.8-20) mg/dL Urine Opiates Screen (NEGATIVE) Ur Buprenorphine Scrn (NEGATIVE) Ur Oxycodone Screen (NEGATIVE) Urine Methadone Screen (NEGATIVE) Ur Propoxyphene Screen (NEGATIVE) Acetaminophen 0 L (10-30) ug/mL Ur Barbiturates Screen (NEGATIVE) Ur Tricyclics Screen (NEGATIVE) Ur Phencyclidine Scrn (NEGATIVE) Ur Amphetamine Screen (NEGATIVE) U Methamphetamines Scrn (NEGATIVE) U Benzodiazepines Scrn (NEGATIVE) U Cocaine Metab Screen (NEGATIVE) U Marijuana (THC) Screen (NEGATIVE) Ethyl Alcohol 0.00 (0.00) gm% 03/15/18 Range/Units 16:15 WBC (3.98-10.04) K/mm3 RBC (3.98-5.22) M/mm3 Hgb (11.2-15.7) gm/L Hct (34.1-44.9) % MCV (79.4-94.8) fl MCH (25.6-32.2) pg MCHC (32.2-35.5) g/dl RDW Std Deviation (36.4-46.3) fL Plt Count (182-369) K/mm3 MPV (9.4-12.3) fl Neut % (Auto) (34.0-71.1) % Lymph % (Auto) (19.3-51.7) % [place] % (Auto) (4.7-12.5) % Eos % (Auto) (0.7-5.8) Baso % (Auto) (0.1-1.2) % Neut # (Auto) (1.56-6.13) K/mm3 Lymph # (Auto) (1.18-3.74) K/mm3 [place] # (Auto) (0.24-0.36) K/mm3 Eos # (Auto) (0.04-0.36) K/mm3 Baso # (Auto) (0.01-0.08) K/mm3 Sodium (136-145) mEq/L Potassium (3.5-5.1) mEq/L Chloride (98-107) mEq/L Carbon Dioxide (21-32) mEq/L Anion Gap (5-15) BUN (7-18) mg/dL Creatinine (0.55-1.02) mg/dL Est Cr Clr Drug Dosing mL/min Estimated GFR (MDRD) (>60) mL/min BUN/Creatinine Ratio (14-18) Glucose (83-115) mg/dL Calcium (8.5-10.1) mg/dL Total Bilirubin (0.2-1.0) mg/dL AST (15-37) U/L ALT (14-59) U/L Alkaline Phosphatase (46-116) U/L Total Protein (6.4-8.2) g/dl Albumin (3.4-5.0) g/dl Globulin gm/dL Albumin/Globulin Ratio (1-2) TSH 3rd Generation (0.358-3.74) uIU/mL Salicylates (2.8-20) mg/dL Urine Opiates Screen Negative (NEGATIVE) Ur Buprenorphine Scrn Negative (NEGATIVE) Ur Oxycodone Screen Negative (NEGATIVE) Urine Methadone Screen Negative (NEGATIVE) Ur Propoxyphene Screen Negative (NEGATIVE) Acetaminophen (10-30) ug/mL Ur Barbiturates Screen Negative (NEGATIVE) Ur Tricyclics Screen Negative (NEGATIVE) Ur Phencyclidine Scrn Negative (NEGATIVE) Ur Amphetamine Screen Negative (NEGATIVE) U Methamphetamines Scrn Negative (NEGATIVE) U Benzodiazepines Scrn Presumptive positive H (NEGATIVE) U Cocaine Metab Screen Negative (NEGATIVE) U Marijuana (THC) Screen Negative (NEGATIVE) Ethyl Alcohol (0.00) gm% Medications Discontinued Medications Generic Name Dose Route Start Last Admin Trade Name Freq PRN Reason Stop Dose Admin Cyclobenzaprine HCl 10 mg 03/15/18 17:14 03/15/18 17:20 Flexeril PO 03/15/18 17:15 10 mg ONETIME ONE Administration Ibuprofen 800 mg 03/15/18 17:06 03/15/18 17:17 Motrin PO 03/15/18 17:07 Not Given ONETIME ONE Re-Assessment/Re-Exam: Patient is alert and calm and cooperative. She is good eye contact throughout her exam. She is able to clearly articulate to me that she is unhappy with the fact that she always looks in pain and is also not pleased with her pain control or really lack of control but that she has no intent of hurting herself and is not feeling suicidal. She intends to move in with her daughter starting in April and states that she just needs better pain control until then. She states that she has pain day and night, always in her back, and this is something that she's been dealing with for years and years. States the Suboxone was historically the most effective medication for her. She is currently only taking ibuprofen. She does not appear psychotic. She is not suicidal. She is well-groomed and has an appropriate affect throughout our conversation. I do not think that she is an immediate risk to herself or others. I appreciate that she is a challenging patient as far as her pain control goes. Don't feel that a committal is in her best interest. She would likely benefit from outpatient psychiatry input as it may be a component of somatic depressive symptoms. Discussed this with Dr. Stephen who agrees. Meanwhile I don't think that she needs any workup for her back pain. She had an MRI that showed degenerative disease sometime in the last year. Her basic lab work including white count, hemoglobin, chemistry, and psychiatric screening labs are normal. Her social and human services assistant also saw her and provided resources for outpatient care. Departure - Departure Time of Disposition: 17:52 Disposition: Home, Self-Care 01 Clinical Impression: Chronic pain Qualifiers: Chronic pain type: chronic pain syndrome Qualified Code(s): G89.4 - Chronic pain syndrome - Discharge Information Prescriptions: Gabapentin [Neurontin] 100 mg PO TID #90 capsule Instructions: Chronic Pain, Adult Referrals: Aleksandr Stephen MD [Primary Care Provider] - Forms: ED Department Discharge Additional Instructions: Follow up with Dr. Stephen as soon as possible. Continue to take your usual medications. Try taking gabapentin as prescribed - this medication can be helpful for chronic pain conditions. Also follow up with chronic pain specialist for further help. - My Orders Last 24 Hours: My Active Orders 03/15/18 16:15 DRUG SCREEN, URINE [URCHEM] Stat - Assessment/Plan Last 24 Hours: My Active Orders 03/15/18 16:15 DRUG SCREEN, URINE [URCHEM] Stat
[2018-03-15] MEDS ORDERED: Cyclobenzaprine 10 MG Tab PO ONE (17:14)
== END 2018-03-15 18:30 | disposition home or self-care (01) ==
LOC: JD.ED 13:27
DX: G89.4 Chronic pain syndrome (principal); M54.9 Dorsalgia, unspecified; M19.90 Unspecified osteoarthritis, unspecified site
CPT/HCPCS: 36415; 80053; 80306; 84443; 85025; 99284; A9270; G0480